=== PATIENT | male | born 1970 | race Caucasian/White ===

== ENCOUNTER 2016-07-27 11:39 | Observation (INO) | payer OTHER ==
[~2016-07-27] VITALS: Ht 160 cm; Wt 63.5 kg
[~2016-07-27 11:39] MED LIST: ACET325S8 PO; GUAI600 PO; LEVA750T PO
[2016-07-27 11:41] VITALS: BP 135/107; PULSE 110; RESP 20; TEMP 98.2; O2SAT 98
[2016-07-27] MEDS ORDERED: PHENYLEPH/NS 1000 MCG/10 ML SYR IV ONE (12:00)
[2016-07-27] MEDS ORDERED: ONDANSETRON HCL 4 MG/2 ML VIAL IV PUSH ONE (12:00)
[2016-07-27] MEDS ORDERED: PROPOFOL 200 MG/20 ML AMP IV ONE (12:00)
--- NOTE | 2016-07-27 12:05 | PD ---
HPI Chief Complaint: Skin Problem Time Seen by Provider: 12:04 Travel History International Travel<30 days: No Contact w/Intl Traveler<30days: No Traveled to known affect area: No History of Present Illness HPI 46-year-old right handed male who is homeless, who is uncertain of any significant medical history, presents to the emergency department for evaluation of a wound on his right fourth digit. Patient states a couple of weeks ago he cut the dorsal aspect of his right fourth digit with metal. He states that he took care of it and it healed pretty well. He states 2 days ago he noticed swelling and wound formation on the volar surface of the right fourth digit adjacent to the initial wound. He states it began draining a purulent drainage. The right fourth digit is edematous and it is starting to move onto his hand. He reports moderate pain at the site. States that he has felt flulike over the last 24 hours. Denies chest tightness. No difficulty breathing. No nausea or vomiting. No other symptoms to report. He is up-to- date on his tetanus vaccination. [facility] Past Medical History Arthritis: Yes Cancer: No Cardiovascular Problems: No Cerebrovascular Accident: No Diminished Hearing: No Endocrine: No Genitourinary: No Immune Disorder: No Musculoskeletal: Yes Neurologic: No Psychiatric: No Reproductive: No Respiratory: No Myocardial Infarction: No Seizures: No Social History Alcohol Use: No Tobacco Use: Yes (1.5ppd) Substance Use: No Allergies-Medications (Allergen,Severity, Reaction): Coded Allergies: No Known Allergies (Unverified , 07/27/16) Reported Meds & Prescriptions Reported Meds & Active Scripts Active No Active Prescriptions or Reported Medications Review of Systems Except as stated in HPI: all other systems reviewed are Neg Physical Exam Narrative GENERAL: Well-nourished male patient, ambulatory and in no acute distress SKIN: Warm and dry. Erythema in his scapula on the dorsal aspect of the right fourth digit proximal to the PIP. There is significant edema of the right fourth digit extending onto the dorsal aspect of the right hand. On the volar surface of the left fourth digit proximal to the PIP there is an open wound draining purulent drainage. HEAD: Atraumatic. Normocephalic. EYES: Pupils equal and round. No scleral icterus. No injection or drainage. ENT: No nasal bleeding or discharge. Mucous membranes pink and moist. NECK: Trachea midline. No JVD. CARDIOVASCULAR: Regular rate and rhythm. No murmur appreciated. RESPIRATORY: No accessory muscle use. Clear to auscultation. Breath sounds equal bilaterally. GASTROINTESTINAL: Abdomen soft, non-tender, nondistended. Hepatic and splenic margins not palpable. MUSCULOSKELETAL: No obvious deformities. No clubbing. No cyanosis. Patient is unable to flex the affected digit secondary to swelling. Sensation intact distal affected digit. Cap refill within normal limits. NEUROLOGICAL: Awake and alert. No obvious cranial nerve deficits. Motor grossly within normal limits. Normal speech. PSYCHIATRIC: Appropriate mood and affect; insight and judgment normal. Data Data Last Documented VS Vital Signs Date Time Temp Pulse Resp B/P Pulse Ox O2 Delivery O2 Flow Rate FiO2 07/27/16 11:41 98.2 110 20 135/107 98 Room Air Orders Iv Access Insert/Monitor (07/27/16 12:10) Complete Blood Count With Diff (07/27/16 12:10) Basic Metabolic Panel (Bmp) (07/27/16 12:10) Finger (Blo1cfz) (07/27/16 ) Wound Culture And Gram Stain (07/27/16 12:35) Vancomycin Inj (Vancomycin Inj) (07/27/16 12:45) Diet Npo (07/27/16 Lunch) Blood Culture (07/27/16 12:55) Labs Laboratory Tests Test 07/27/16 13:00 White Blood Count 14.6 TH/MM3 Red Blood Count 4.86 MIL/MM3 Hemoglobin 14.4 GM/DL Hematocrit 43.1 % Mean Corpuscular Volume 88.7 FL Mean Corpuscular Hemoglobin 29.7 PG Mean Corpuscular Hemoglobin 33.5 % Concent Red Cell Distribution Width 13.5 % Platelet Count 308 TH/MM3 Mean Platelet Volume 8.2 FL Neutrophils (%) (Auto) 77.8 % Lymphocytes (%) (Auto) 15.2 % Monocytes (%) (Auto) 6.4 % Eosinophils (%) (Auto) 0.2 % Basophils (%) (Auto) 0.4 % Neutrophils # (Auto) 11.4 TH/MM3 Lymphocytes # (Auto) 2.2 TH/MM3 Monocytes # (Auto) 0.9 TH/MM3 Eosinophils # (Auto) 0.0 TH/MM3 Basophils # (Auto) 0.1 TH/MM3 CBC Comment DIFF FINAL Differential Comment Sodium Level 137 MEQ/L Potassium Level 4.3 MEQ/L Chloride Level 104 MEQ/L Carbon Dioxide Level 23.8 MEQ/L Anion Gap 9 MEQ/L Blood Urea Nitrogen 7 MG/DL Creatinine 0.83 MG/DL Estimat Glomerular Filtration 100 ML/MIN Rate Random Glucose 88 MG/DL Calcium Level 8.5 MG/DL MDM Medical Decision Making Medical Screen Exam Complete: Yes Emergency Medical Condition: Yes Medical Record Reviewed: Yes Differential Diagnosis Cellulitis versus abscess versus tenosynovitis versus osteomyelitis Narrative Course 46-year-old male presents to the emergency department for evaluation of swelling of the right fourth digit extending onto his hand. Patient is noted to have a wound on the volar surface adjacent to a wound that occurred 2 weeks ago. The finger is edematous and there is swelling on the dorsal aspect of the hand. It is neurovascularly intact. I have taken a picture and sent to Dr. Short, hand specialist. She requests nothing by mouth and admission to medical team. CBC is with mild leukocytosis of 14.6. BMP is without acute concern. Blood cultures are drawn. Patient was given 1 g vancomycin. A call has been placed to hospitalist for admission. Diagnosis Primary Impression: Cellulitis of ring finger Qualified Code: L03.011 - Cellulitis of ring finger, right Additional Impressions: Abscess of ring finger Cellulitis of hand Admitting Information Admitting Physician Requests: Admit Scripts No Active Prescriptions or Reported Meds Condition: Garima Noguera Jul 27, 2016 12:04
[2016-07-27] MEDS ORDERED: VANCOMYCIN INJ 1,000 MG in SODIUM CHLOR 0.9% 250 ML INJ 250 ML IV ONE (12:45)
--- NOTE | 2016-07-27 13:02 | RADRPT ---
EXAM DATE/TIME: 07/27/2016 12:32 [place] COMPARISON: No previous studies available for comparison. INDICATIONS : Patient states he has an infection which started last night. MEDICAL HISTORY : None. SURGICAL HISTORY : None. ENCOUNTER: Initial ACUITY: 1 day PAIN SCORE: 10/10 LOCATION: Right Fourth digit. FINDINGS: Soft tissues of the ring finger are diffusely swollen. Bones are intact and normally aligned. No sign ificant arthropathy seen. No radiopaque foreign body demonstrated. CONCLUSION: Soft tissue swelling without bony abnormality. Renny Helm MD on July 27, 2016 at 13:00 Board Certified Radiologist. This report was verified electronically.
[2016-07-27 13:10] LABS: AUTOMATED NEUTROPHIL # 11.4 TH/MM3 (1.8-7.7); BASOPHIL # 0.1 TH/MM3 (0-0.2); BASOPHIL % 0.4 % (0.0-2.0); EOSINOPHIL % 0.2 % (0.0-4.0); HEMATOCRIT 43.1 % (39.0-51.0); HEMO FLAGS DIFF FINAL; LYMPH % 15.2 % (9.0-44.0); LYMPHOCYTE # 2.2 TH/MM3 (1.0-4.8); MEAN CELL VOLUME 88.7 FL (80.0-100.0); MEAN CORPUSCULAR HEMOGLOBIN 29.7 PG (27.0-34.0); MEAN CORPUSCULAR HGB CONC 33.5 % (32.0-36.0); MONO % 6.4 % (0.0-8.0); NEUT % 77.8 % (16.0-70.0); PLATELET COUNT 308 TH/MM3 (150-450); RED BLOOD COUNT 4.86 MIL/MM3 (4.50-5.90); RED CELL DISTRIBUTION WIDTH 13.5 % (11.6-17.2); WHITE BLOOD COUNT 14.6 TH/MM3 (4.0-11.0)
[2016-07-27 13:25] LABS: BICARBONATE 23.8 MEQ/L (21.0-32.0)
[2016-07-27 13:26] LABS: POTASSIUM 4.3 MEQ/L (3.5-5.1)
[2016-07-27 14:15] VITALS: BP 128/87
[2016-07-27] MEDS ORDERED: ONDANSETRON HCL 4 MG/2 ML VIAL IVP PRN (14:15)
[2016-07-27] MEDS ORDERED: BISACODYL 10 MG SUPP PR PRN (14:15)
[2016-07-27] MEDS ORDERED: NALOXONE HCL 0.4 MG/ML AMP IV PRN (14:15)
[2016-07-27] MEDS ORDERED: MAGNESIUM HYDROXIDE SUSP 30 ML CUP PO PRN (14:15)
[2016-07-27] MEDS ORDERED: ACETAMINOPHEN/HYDROcodone 325 MG/5 MG TAB PO PRN (14:15)
[2016-07-27] MEDS ORDERED: SODIUM CHLORIDE 0.9% FLUSH 5 ML FLUSH FLUSH PRN (14:15)
[2016-07-27] MEDS ORDERED: ACETAMINOPHEN 325 MG TAB PO PRN (14:15)
[2016-07-27] MEDS ORDERED: SENNOSIDES 8.6 MG TAB PO PRN (14:15)
[2016-07-27] MEDS ORDERED: MORPHINE SULFATE 4 MG/ML INJ IV PUSH PRN ×3 (14:15)
[2016-07-27] MEDS ORDERED: METOPROLOL TARTRATE 25 MG TAB PO PRN ×2 (15:15)
[2016-07-27] MEDS ORDERED: SODIUM CHLORID 0.9% 500 ML IV SCH ×2 (15:15)
[2016-07-27] MEDS ORDERED: INSULIN HUMAN REGULAR 1,000 UNITS/10 ML VIAL SQ PRN ×2 (15:15)
[2016-07-27] MEDS ORDERED: LACTATED RINGER'S 1000 ML IV SCH ×2 (15:15)
[2016-07-27] MEDS ORDERED: Vancomycin Consult Pharmacy 1 EA OTHER SCH (15:45)
[2016-07-27] MEDS ORDERED: ceFAZolin 1,000 MG/NS 100 ML IV SCH ×2 (16:15)
--- NOTE | 2016-07-27 16:24 | HHI.HP ---
[facility]ician No Primary Care Physician Admission Diagnosis R 4TH DIGIT CELLULITIS/ABSCESS WITH HAND CELLULITIS Diagnoses: Chief Complaint: Right hand infection Travel History International Travel<30 Days: No Contact w/Intl Traveler <30 Da: No Traveled to Known Affected Are: No History of Present Illness 46 years old homeless man presented to the ED with complaint of right fourth digit swelling, redness and severe tenderness which extended to his right arm happened a few days ago after he had a metal piece of raised his finger, he applied antibiotic cream and dressing but it didn't get better and become purulent and draining, patient admitted having flulike syndrome last 24 hours, however no significant fever or chills or short of breath or nausea or vomiting , no abdominal pain diarrhea or constipation, he is up-to-date on his tetanus vaccination. He doesn't follow up with any physician he is not aware of having any medical problem Review of Systems All 10 systems reviewed and was positive for what is mentioned in history of present illness otherwise negative Past Family Social History Past Medical History Not aware of any medical problem Allergies: Coded Allergies: No Known Allergies (Unverified , 07/27/16) Family History Mother had cancer and diabetes, father had heart attack Social History Smoke one half pack per day, drinks alcohol occasionally denied also drug abuse Physical Exam Vital Signs Vital Signs Date Time Temp Pulse Resp B/P Pulse Ox O2 Delivery O2 Flow Rate FiO2 07/27/16 14:15 85 16 128/87 99 07/27/16 11:41 98.2 110 20 135/107 98 Room Air Physical Exam GENERAL: This is a well-nourished, well-developed patient, in no apparent distress. SKIN: Right dorsal hand erythema and swelling, fourth right digits with global swelling with abrasion which is wet and draining HEAD: Atraumatic. Normocephalic. EYES: Pupils equal round and reactive. Extraocular motions intact. No scleral icterus. ENT: Nose without bleeding, or drainage, Airway patent. NECK: Trachea midline. Supple CARDIOVASCULAR: Regular rate and rhythm without murmurs, gallops, or rubs. RESPIRATORY: Fair air entry bilaterally. No wheezes, rales, or rhonchi. GASTROINTESTINAL: Abdomen soft, non-tender, nondistended. Positive bowel sounds MUSCULOSKELETAL: Extremities without clubbing, cyanosis, or edema. Pedal pulses appreciated NEUROLOGICAL: Awake and alert. Moves all extremity. Normal speech.no focal neurological deficit Laboratory Laboratory Tests Test 07/27/16 13:00 White Blood Count 14.6 Red Blood Count 4.86 Hemoglobin 14.4 Hematocrit 43.1 Mean Corpuscular Volume 88.7 Mean Corpuscular Hemoglobin 29.7 Mean Corpuscular Hemoglobin 33.5 Concent Red Cell Distribution Width 13.5 Platelet Count 308 Mean Platelet Volume 8.2 Neutrophils (%) (Auto) 77.8 Lymphocytes (%) (Auto) 15.2 Monocytes (%) (Auto) 6.4 Eosinophils (%) (Auto) 0.2 Basophils (%) (Auto) 0.4 Neutrophils # (Auto) 11.4 Lymphocytes # (Auto) 2.2 Monocytes # (Auto) 0.9 Eosinophils # (Auto) 0.0 Basophils # (Auto) 0.1 CBC Comment DIFF FINAL Differential Comment Sodium Level 137 Potassium Level 4.3 Chloride Level 104 Carbon Dioxide Level 23.8 Anion Gap 9 Blood Urea Nitrogen 7 Creatinine 0.83 Estimat Glomerular Filtration 100 Rate Random Glucose 88 Calcium Level 8.5 Date/Time Procedure Status Source Growth 07/27/16 13:01 Gram Stain Received Wound Finger Pending 07/27/16 13:01 Wound Culture Received Wound Finger Pending 07/27/16 13:00 Aerobic Blood Culture Received Blood Peripheral Pending 07/27/16 13:00 Anaerobic Blood Culture Received Blood Peripheral Pending Result Diagram: 07/27/16 1300 07/27/16 1300 Imaging Last Impressions Finger X-Ray 07/27/16 0000 Signed Impressions: Service Date/Time: Wednesday, July 27, 2016 12:32 - CONCLUSION: Soft tissue swelling without bony abnormality. Renny Helm MD Assessment and Plan Assessment and Plan 46 years old male with Right fourth digit and right hand cellulitis/abscess Leukocytosis with left shift Plan: Admit for incision and drainage Iv vancomycin started Consult for hand surgery obtain recommended keeping patient nothing by mouth, he will go to our day Follow culture postop Pain medication with [place] and morphine ED prophylaxis with ambulation Discussed Condition With Patient Chaka David MD Jul 27, 2016 16:23
[2016-07-27] MEDS ORDERED: LIDOCAINE HCL 2% 50 ML VIAL ONE (18:22)
[2016-07-27] MEDS ORDERED: ceFAZolin INJ 1,000 MG VIAL ONE (18:22)
[2016-07-27] MEDS ORDERED: NEOMYCIN/POLYMYXIN 1 ML G.U. IRRIGANT XX ONE (18:38)
[2016-07-27] MEDS ORDERED: ACETAMINOPHEN 1000 MG/100 ML VIAL IV ONE (18:50)
[2016-07-27] MEDS ORDERED: DO NOT ADM ANY ANTICOAGULANT DRUGS XX PRN (19:22)
[2016-07-27] MEDS ORDERED: fentaNYL CITRATE 250 MCG/5 ML AMP ONE (19:25)
[2016-07-27] MEDS ORDERED: MIDAZOLAM HCL 2 MG/2 ML VIAL ONE (19:25)
[2016-07-27] MEDS: SODIUM CHLOR 0.9% 1000 ML INJ 1,000 ML IV SCH (19:38)
[2016-07-27] MEDS ORDERED: *morphine SULFATE 8 MG/ML PERIprocedure ONLY ONE (20:13)
--- NOTE | 2016-07-27 20:36 | PD.ORT.PN ---
Subjective Subjective Remarks Patient reports pain improved Objective Vitals Vital Signs Date Time Temp Pulse Resp B/P Pulse Ox O2 Delivery O2 Flow Rate FiO2 07/27/16 19:30 112 16 99/66 95 Nasal Cannula 3 07/27/16 19:20 100.6 110 23 99/52 94 Nasal Cannula 3 07/27/16 14:15 85 16 128/87 99 07/27/16 11:41 98.2 110 20 135/107 98 Room Air I/O 07/26/16 07/26/16 07/26/16 07/27/16 07/27/16 07/27/16 07:00 15:00 23:00 07:00 15:00 23:00 Intake Total 600 ml Output Total 10 ml Balance 590 ml Intake Other 600 ml Output Estimated Blood Loss 10 ml Result Diagram: 07/27/16 1300 07/27/16 1300 Other Results Laboratory Tests Test 07/27/16 16:05 Prothrombin Time 11.0 SEC (9.8-11.6) Prothromb Time International 1.0 RATIO Ratio Imaging Last 24 hours Impressions Finger X-Ray 07/27/16 0000 Signed Impressions: Service Date/Time: Wednesday, July 27, 2016 12:32 - CONCLUSION: Soft tissue swelling without bony abnormality. Renny Helm MD Objective Remarks Dressing in place, <2 sec capillary refill to finger, decreased sensation secondary to digital block, able to fire fdp, fds Assessment & Plan Assessment and Plan POD0 s/p I&D flexor tendon sheath right ring finger -IV Ab per primary team, follow cultures -Daily dressing change with packing change to begin POD2 -Followup with wound clinic for dressing changes on discard if needed -Elevate right ring finger and ROM right ring finger Patricia Short MD Jul 27, 2016 20:36
--- NOTE | 2016-07-27 20:51 | MB ---
cc: PATRICIA SHORT DATE OF CONSULTATION: 07/27/2016 REASON FOR CONSULTATION: Infectious Flexor tenosynovitis right ring finger. HISTORY OF PRESENT ILLNESS Alex Dejesus is a 46-year-old right-hand dominant male who states that he sustained a laceration over the dorsum of his right ring finger several days ago. He states that he had attempted to keep it clean, then he noticed purulent drainage from the volar aspect of the finger last night and this morning, so he presented to the emergency room. He reports a prior similar episode on the left hand but nothing recently on the right hand. PAST MEDICAL HISTORY: Denies ALLERGIES NO KNOWN DRUG ALLERGIES. SOCIAL HISTORY The patient smokes one pack per day. Drinks alcohol occasionally. Denies any drug use. PHYSICAL EXAMINATION The patient is alert and oriented. Exam of the right ring finger shows significant purulence on the volar aspect of the finger, significant swelling of the right ring finger, inability to make a full fist with the right ring finger. Sensation intact on the radial ulnar side. Less than 2-second capillary refill. Function intact of FDS and FDP. No obvious swelling or erythema to the hand. LABORATORY DATA: White count 14.6. IMAGING STUDIES X-ray shows no evidence of osteomyelitis or fracture. ASSESSMENT/PLAN A 46-year-old right-hand dominant male with flexor tenosynovitis of the right ring finger. At this time I recommended emergent incision and drainage and admission for IV antibiotics and the patient elects to proceed. Risks were explained but not limited to wound complications, infection, sepsis, recurrent abscess, need for additional surgeries. He elected to proceed. Patricia Short MD /ATIYA /8:31 PM /8:48 PM [facility] SYSTEM[facility]
[2016-07-27] MEDS: SODIUM CHLORIDE 0.9% FLUSH 5 ML FLUSH FLUSH SCH (21:00)
[2016-07-27 21:30] VITALS: BP 107/75; PULSE 100; RESP 16; TEMP 96.8; O2SAT 94
[2016-07-28] VITALS (8 sets, daily range): BP systolic 101–117; BP diastolic 63–81; PULSE 68–114; RESP 16–20; TEMP 96.3–100.5; O2SAT 94–97
[2016-07-28] MEDS: SODIUM CHLOR 0.9% 1000 ML INJ 1,000 ML IV SCH ×3 (00:02→20:02)
[2016-07-28] MEDS ORDERED: VANCOMYCIN INJ 1,000 MG in SODIUM CHLOR 0.9% 250 ML INJ 250 ML IV SCH (01:00)
[2016-07-28] MEDS: DOCUSATE SODIUM 100 MG CAP PO SCH ×2 (01:27→10:31)
[2016-07-28] MEDS: ACETAMINOPHEN/HYDROcodone 325 MG/7.5 MG TAB PO PRN ×2 (01:28→07:45)
[2016-07-28] MEDS: VANCOMYCIN INJ 1,250 MG in SODIUM CHLOR 0.9% 250 ML INJ 250 ML IV SCH ×3 (01:28→23:35)
[2016-07-28] MEDS: SODIUM CHLORIDE 0.9% FLUSH 5 ML FLUSH FLUSH SCH ×2 (07:00→20:12)
[2016-07-28] MEDS: HEPARIN SODIUM - SQ 10,000 UNITS/ML VIAL SQ SCH ×2 (07:45→16:48)
[2016-07-28 07:53] LABS: AUTOMATED NEUTROPHIL # 12.1 TH/MM3 (1.8-7.7); BASOPHIL % 0.3 % (0.0-2.0); EOSINOPHIL # 0.1 TH/MM3 (0-0.4); EOSINOPHIL % 0.5 % (0.0-4.0); HEMATOCRIT 36.3 % (39.0-51.0); HEMO FLAGS DIFF FINAL; LYMPH % 9.5 % (9.0-44.0); LYMPHOCYTE # 1.4 TH/MM3 (1.0-4.8); MEAN CELL VOLUME 88.5 FL (80.0-100.0); MEAN CORPUSCULAR HEMOGLOBIN 29.1 PG (27.0-34.0); MEAN CORPUSCULAR HGB CONC 32.9 % (32.0-36.0); MONO % 7.9 % (0.0-8.0); NEUT % 81.8 % (16.0-70.0); PLATELET COUNT 250 TH/MM3 (150-450); RED CELL DISTRIBUTION WIDTH 13.4 % (11.6-17.2); WHITE BLOOD COUNT 14.8 TH/MM3 (4.0-11.0)
[2016-07-28 08:39] LABS: BICARBONATE 23.6 MEQ/L (21.0-32.0); POTASSIUM 3.3 MEQ/L (3.5-5.1)
[2016-07-28] MEDS ORDERED: INFLUENZA VIRUS VACCINE (QUADRIVALENT) 0.5 ML SYR IM ONE (09:00)
[2016-07-28] MEDS ORDERED: POTASSIUM CHLORIDE 20 MEQ CONTROLLED RELEASE TAB PO ONE (09:45)
--- NOTE | 2016-07-28 14:06 | HHI.PR ---
Subjective Remarks Patient doing well laying in bed, afebrile, status post I&D for his right fourth digit and hand Objective Vitals Vital Signs Date Time Temp Pulse Resp B/P Pulse Ox O2 Delivery O2 Flow Rate FiO2 07/28/16 11:50 97.1 68 20 105/77 97 07/28/16 10:19 96 21 07/28/16 07:50 100.3 93 20 103/63 94 07/28/16 04:06 100.4 99 16 108/77 96 07/28/16 03:11 16 07/28/16 01:02 100.5 114 16 113/81 94 07/27/16 21:30 96.8 100 16 107/75 94 07/27/16 20:50 98.5 98 16 100/64 95 Room Air 07/27/16 20:30 98.7 101 16 101/62 96 Room Air 07/27/16 20:18 15 07/27/16 20:15 104 16 102/64 95 Room Air 07/27/16 20:00 105 16 100/62 94 Room Air 07/27/16 19:45 110 16 91/62 98 Nasal Cannula 3 07/27/16 19:30 112 16 99/66 95 Nasal Cannula 3 07/27/16 19:20 100.6 110 23 99/52 94 Nasal Cannula 3 07/27/16 14:15 85 16 128/87 99 I/O 07/27/16 07/27/16 07/27/16 07/28/16 07/28/16 07/28/16 07:00 15:00 23:00 07:00 15:00 23:00 Intake Total 1390 ml 650 ml Output Total 260 ml 900 ml Balance 1130 ml -250 ml Intake Oral 690 ml 650 ml IV Total 100 ml Other 600 ml Output Urine Total 250 ml 900 ml Estimated Blood Loss 10 ml # Voids 0 # Bowel Movements 0 0 Result Diagram: 07/28/1670207/28/16702 Objective Remarks GENERAL: This is a well-nourished, well-developed patient, in no apparent distress. SKIN: No rashes, warm and dry HEAD: Atraumatic. Normocephalic. EYES: Pupils equal round and reactive. Extraocular motions intact. No scleral icterus. ENT: Nose without bleeding, or drainage, Airway patent. NECK: Trachea midline. Supple CARDIOVASCULAR: Regular rate and rhythm without murmurs, gallops, or rubs. RESPIRATORY: Fair air entry bilaterally. No wheezes, rales, or rhonchi. GASTROINTESTINAL: Abdomen soft, non-tender, nondistended. Positive bowel sounds MUSCULOSKELETAL: Extremities without clubbing, cyanosis, or edema. Pedal pulses appreciated, right hand in dressing NEUROLOGICAL: Awake and alert. Moves all extremity. Normal speech.no focal neurological deficit A/P Assessment and Plan 46 years old male with Right fourth digit and right hand cellulitis/abscess Leukocytosis with left shift Acute anemia hemoglobin dropped from 14-12 mostly postop Plan: Status post incision and drainage 07/27/16 Iv vancomycin Follow wound culture Pain medication with [place] and morphine ED prophylaxis with ambulation Chaka David MD Jul 28, 2016 14:05
[2016-07-29] VITALS (7 sets, daily range): BP systolic 116–134; BP diastolic 76–85; PULSE 73–91; RESP 16–20; TEMP 95.7–98.7; O2SAT 95–99
[2016-07-29] MEDS: DOCUSATE SODIUM 100 MG CAP PO SCH ×2 (01:45→12:20)
[2016-07-29] MEDS: HEPARIN SODIUM - SQ 10,000 UNITS/ML VIAL SQ SCH ×3 (01:45→17:15)
[2016-07-29] MEDS: SODIUM CHLOR 0.9% 1000 ML INJ 1,000 ML IV SCH ×2 (06:02→12:21)
[2016-07-29] MEDS: SODIUM CHLORIDE 0.9% FLUSH 5 ML FLUSH FLUSH SCH ×2 (08:39→21:00)
--- NOTE | 2016-07-29 10:06 | HHI.PR ---
Subjective Remarks Doing well, stated pain is less, afebrile, wound culture showed MRSA and group A strep Objective Vitals Vital Signs Date Time Temp Pulse Resp B/P Pulse Ox O2 Delivery O2 Flow Rate FiO2 07/29/16 08:00 95.7 81 20 125/84 97 07/29/16 04:00 98.2 91 16 127/85 95 07/29/16 00:28 97.7 86 16 116/81 95 07/28/16 20:00 97.4 91 16 117/79 96 07/28/16 19:50 18 07/28/16 17:44 96 21 07/28/16 15:50 96.3 89 20 101/72 96 07/28/16 11:50 97.1 68 20 105/77 97 07/28/16 10:19 96 21 I/O 07/28/16 07/28/16 07/28/16 07/29/16 07/29/16 07/29/16 07:00 15:00 23:00 07:00 15:00 23:00 Intake Total 650 ml 600 ml 1895 ml 1345 ml Output Total 900 ml 2000 ml 1100 ml 2500 ml 1000 ml Balance -250 ml -1400 ml 795 ml -1155 ml -1000 ml Intake Oral 650 ml 600 ml 600 ml 600 ml IV Total 1295 ml 745 ml Output Urine Total 900 ml 2000 ml 1100 ml 2500 ml 1000 ml # Bowel Movements 0 0 0 0 Result Diagram: 07/28/16 0707/28/16 07 Objective Remarks GENERAL: This is a well-nourished, well-developed patient, in no apparent distress. SKIN: No rashes, warm and dry HEAD: Atraumatic. Normocephalic. EYES: Pupils equal round and reactive. Extraocular motions intact. No scleral icterus. ENT: Nose without bleeding, or drainage, Airway patent. NECK: Trachea midline. Supple CARDIOVASCULAR: Regular rate and rhythm without murmurs, gallops, or rubs. RESPIRATORY: Fair air entry bilaterally. No wheezes, rales, or rhonchi. GASTROINTESTINAL: Abdomen soft, non-tender, nondistended. Positive bowel sounds MUSCULOSKELETAL: Extremities without clubbing, cyanosis, or edema. Pedal pulses appreciated, right hand in dressing NEUROLOGICAL: Awake and alert. Moves all extremity. Normal speech.no focal neurological deficit A/P Assessment and Plan 46 years old male with Right fourth digit and right hand cellulitis/abscess Leukocytosis with left shift Acute anemia hemoglobin dropped from 14-12 mostly postop Hypokalemia replaced, monitor level Plan: Status post incision and drainage 07/27/16 Iv vancomycin Wound culture showed MRSA and group A beta strep>> continue Vanco will switch to by mouth clindamycin if okay with surgery, fungal and AFB cultures still pending Check CBC BMP in a.m. Pain medication with [place] and morphine ED prophylaxis with ambulation Discharge Planning today or In a.m. on clindamycin okay with surgery Discharge patient to home Condition on discharge: Improved Regular Diet as tolerated Ad [place] activity Rx written:clindamycin , percocet , lactinex Follow-up with primary care physician, hand surgeon as dirceted Addendum: I was called by the nurse, and surgeon requesting ID consult prior to discharge Chaka David MD Jul 29, 2016 10:06
[2016-07-29] MEDS ORDERED: HYDR-3516 PO (10:23)
[2016-07-29] MEDS ORDERED: LACTCHW3 CHEW (10:23)
[2016-07-29] MEDS ORDERED: CLIN1CAP6 PO (10:23)
--- NOTE | 2016-07-29 10:30 | HHI.DS ---
Discharge Summary Admission Date Jul 27, 2016 at 14:02 Discharge Date: Jul 31, 2016 Admitting Diagnosis R 4TH DIGIT CELLULITIS/ABSCESS WITH HAND CELLULITIS (1) Abscess of ring finger ICD Code: L02.519 (2) Cellulitis of ring finger ICD Code: L03.019 Procedures see below Brief History - From Admission 46 years old homeless man presented to the ED with complaint of right fourth digit swelling, redness and severe tenderness which extended to his right arm happened a few days ago after he had a metal piece of raised his finger, he applied antibiotic cream and dressing but it didn't get better and become purulent and draining, patient admitted having flulike syndrome last 24 hours, however no significant fever or chills or short of breath or nausea or vomiting , no abdominal pain diarrhea or constipation, he is up-to-date on his tetanus vaccination. He doesn't follow up with any physician he is not aware of having any medical problem CBC/BMP: 07/28/16 0703 07/28/16 0703 Significant Findings Laboratory Tests Test 07/27/16 07/28/16 13:00 07:03 White Blood Count 14.6 TH/MM3 14.8 TH/MM3 (4.0-11.0) (4.0-11.0) Neutrophils (%) (Auto) 77.8 % 81.8 % (16.0-70.0) (16.0-70.0) Neutrophils # (Auto) 11.4 TH/MM3 12.1 TH/MM3 (1.8-7.7) (1.8-7.7) Red Blood Count 4.10 MIL/MM3 (4.50-5.90) Hemoglobin 12.0 GM/DL (13.0-17.0) Hematocrit 36.3 % (39.0-51.0) Monocytes # (Auto) 1.2 TH/MM3 (0-0.9) Potassium Level 3.3 MEQ/L (3.5-5.1) Calcium Level 7.9 MG/DL (8.5-10.1) PE at Discharge GENERAL: This is a well-nourished, well-developed patient, in no apparent distress. SKIN: No rashes, warm and dry HEAD: Atraumatic. Normocephalic. EYES: Pupils equal round and reactive. Extraocular motions intact. No scleral icterus. ENT: Nose without bleeding, or drainage, Airway patent. NECK: Trachea midline. Supple CARDIOVASCULAR: Regular rate and rhythm without murmurs, gallops, or rubs. RESPIRATORY: Fair air entry bilaterally. No wheezes, rales, or rhonchi. GASTROINTESTINAL: Abdomen soft, non-tender, nondistended. Positive bowel sounds MUSCULOSKELETAL: Extremities without clubbing, cyanosis, or edema. Pedal pulses appreciated, right hand in dressing NEUROLOGICAL: Awake and alert. Moves all extremity. Normal speech.no focal neurological deficit Hospital Course Right fourth digit and right hand cellulitis/abscess hand sx consulted Status post incision and drainage 07/27/16,Iv vancomycin, Pain medication with [place] and morphine Wound culture showed MRSA and group A beta strep>> continue Vanco, surgery requested ID consultation which was obtained, Dr. Reyes requested continuing iv antibiotic and to be discharged on clindamycin and Keflex for 10 days, patient is high risk for oral antibiotic adherence since he is a homeless, lengthy education and discussion with the patient has been done to address the importance of being religiously adherent with his antibiotic to make sure healing of the wound Leukocytosis with left shift, monitored cbc , Acute anemia hemoglobin dropped from 14-12 mostly postop Pt Condition on Discharge: Fair Discharge Disposition: Discharge Home Discharge Time: > 30 minutes Discharge Instructions DIET: Follow Instructions for: As Tolerated, No Restrictions Activities you can perform: Weight Bearing as Joseph Other Activity Instructions: -Elevate right ring finger and ROM right ring finger Follow up Referrals: Hand Surgery - 1 Week with Patricia Short MD New Medications: Cephalexin (Keflex) 500 Mg Cap 500 MG PO Q6H Infection #40 Ref 0 CAP Clindamycin (Clindamycin) 300 Mg Cap 300 MG PO TID Infection #30 Ref 0 CAP Lactobacillus Acidophilus (Lactinex) 1 Chew 1 TAB CHEW TID Nutritional Supplement #90 Ref 0 TAB Hydrocodone-Acetaminophen (Hydrocodone-Acetaminophen) 5-325 mg Tab 1 TAB PO Q4H PRN PAIN SCALE 3 TO 5 #15 TAB Chaka David MD Jul 29, 2016 10:30
[2016-07-29] MEDS ORDERED: PHARMACY ORDERED LAB XX ONE (11:45)
[2016-07-29] MEDS: VANCOMYCIN INJ 1,250 MG in SODIUM CHLOR 0.9% 250 ML INJ 250 ML IV SCH (14:03)
[2016-07-30] VITALS: BP 107/73; PULSE 79; RESP 16; TEMP 98.1; O2SAT 97
[2016-07-30] MEDS: VANCOMYCIN INJ 1,250 MG in SODIUM CHLOR 0.9% 250 ML INJ 250 ML IV SCH ×2 (00:39→12:58)
[2016-07-30] MEDS: HEPARIN SODIUM - SQ 10,000 UNITS/ML VIAL SQ SCH ×3 (00:39→18:11)
[2016-07-30] MEDS: SODIUM CHLOR 0.9% 1000 ML INJ 1,000 ML IV SCH ×3 (02:02→22:02)
[2016-07-30] MEDS: DOCUSATE SODIUM 100 MG CAP PO SCH ×2 (02:15→14:15)
[2016-07-30 04:00] VITALS: BP 114/73; PULSE 80; RESP 16; TEMP 98.2; O2SAT 98
[2016-07-30 05:46] LABS: AUTOMATED NEUTROPHIL # 5.5 TH/MM3 (1.8-7.7); BASOPHIL # 0.1 TH/MM3 (0-0.2); BASOPHIL % 0.7 % (0.0-2.0); EOSINOPHIL # 0.3 TH/MM3 (0-0.4); EOSINOPHIL % 3.5 % (0.0-4.0); HEMATOCRIT 38.9 % (39.0-51.0); HEMO FLAGS DIFF FINAL; LYMPH % 27.8 % (9.0-44.0); LYMPHOCYTE # 2.6 TH/MM3 (1.0-4.8); MEAN CELL VOLUME 88.2 FL (80.0-100.0); MEAN CORPUSCULAR HEMOGLOBIN 29.5 PG (27.0-34.0); MEAN CORPUSCULAR HGB CONC 33.5 % (32.0-36.0); MONO % 7.8 % (0.0-8.0); NEUT % 60.2 % (16.0-70.0); PLATELET COUNT 273 TH/MM3 (150-450); RED BLOOD COUNT 4.41 MIL/MM3 (4.50-5.90); RED CELL DISTRIBUTION WIDTH 13.1 % (11.6-17.2); WHITE BLOOD COUNT 9.2 TH/MM3 (4.0-11.0)
[2016-07-30 06:08] LABS: BICARBONATE 22.6 MEQ/L (21.0-32.0); POTASSIUM 3.6 MEQ/L (3.5-5.1)
[2016-07-30 08:45] VITALS: BP 102/56; PULSE 82; RESP 16; TEMP 96.2; O2SAT 99
[2016-07-30] MEDS: SODIUM CHLORIDE 0.9% FLUSH 5 ML FLUSH FLUSH SCH ×2 (08:57→20:00)
--- NOTE | 2016-07-30 10:48 | PD.ID.CON ---
History of Present Illness Service ID Consult Requested By Dr David Reason for Consult R Ring finger infx Primary Care Physician No Primary Care Physician Diagnoses: History of Present Illness 46 yo male with unremarkable PMX developped swelling redness purulent drainage and pain of his R ring finger a week later after sustaining a cut He was managing it by himself with topical abx ointment and finally presented to ER after his problem got worse He underwent I+D and he states improvednt. Before surgery the whole hand was red and swollen No fever, no leukocytosis He feels fine o/w and wants to go home His culture positive for GAS and MRSA He is on vancomycin Review of Systems Except as stated in HPI: all other systems reviewed are Neg Past Family Social History Allergies: Coded Allergies: *MDRO Multi-Drug Resistant Organism (Verified Adverse Reaction, Unknown, ) MRSA (finger)-07/27/16 Past Medical History denies Past Surgical History I+D R ring finger Active Ordered Medications Medications where reviewed in EMR Antibiotics Include: vancomcyin Family History Mother had cancer and diabetes, father had heart attack Social History homeless Smoke 1.5 pack per day, drinks alcohol occasionally denied also drug abuse Physical Exam Vital Signs Vital Signs Date Time Temp Pulse Resp B/P Pulse Ox O2 Delivery O2 Flow Rate FiO2 07/30/16 08:45 96.2 82 16 102/56 99 07/30/16 04:00 98.2 80 16 114/73 98 07/30/16 00:00 98.1 79 16 107/73 97 07/29/16 20:00 98.7 86 18 125/81 98 07/29/16 16:05 96.7 80 20 124/76 99 07/29/16 12:00 96.2 73 20 134/84 98 07/29/16 10:40 97 21 Physical Exam CONSTITUTIONAL/GENERAL: This is an adequately nourished patient, in no apparent distress. TUBES/LINES/DRAINS: SKIN: No jaundice, rashes, or lesions. Skin temperature appropriate. Not diaphoretic. HEAD: Atraumatic. Normocephalic. EYES: Pupils equal and round and reactive. Extraocular motions intact. No scleral icterus. No injection or drainage. Fundi not examined. ENT: Hearing grossly normal. Nose without bleeding or purulent drainage. Oral mucosae moist, dentition poor NECK: Trachea midline. Supple, nontender. No palpable thyroid enlargement or nodularity. CARDIOVASCULAR: Regular rate and rhythm without murmurs, gallops, or rubs. No JVD. Peripheral pulses symmetric. RESPIRATORY/CHEST: Symmetric, unlabored respirations. Clear to auscultation. Breath sounds equal bilaterally. No wheezes, rales, or rhonchi. GASTROINTESTINAL: Abdomen soft, non-tender, nondistended. No hepato-splenomegaly , or palpable masses. No guarding. Bowel sounds present. MUSCULOSKELETAL: Extremities without clubbing, cyanosis, or edema. No joint tenderness or effusion noted. R ring finger incision on lat and volar aspect of [address] st phalanx is packed with wound wo granulations so far, necrotic tissu present, purulent odorless d/c; volacious discoloration present LYMPHATICS: No palpable cervical or supraclavicular adenopathy. NO axillae lymphadenopathy NEUROLOGICAL: Awake and alert. Motor and sensory grossly within normal limits. Follows commands. Cognitively sharp. Moves all extremities. PSYCHIATRIC: No obvious anxiety/depression. no apparent hallucinations or other psychotic thought process. Laboratory Laboratory Tests Test 07/29/16 07/30/16 12:30 05:15 Vancomycin Level Trough 6.6 White Blood Count 9.2 Red Blood Count 4.41 Hemoglobin 13.0 Hematocrit 38.9 Mean Corpuscular Volume 88.2 Mean Corpuscular Hemoglobin 29.5 Mean Corpuscular Hemoglobin 33.5 Concent Red Cell Distribution Width 13.1 Platelet Count 273 Mean Platelet Volume 8.0 Neutrophils (%) (Auto) 60.2 Lymphocytes (%) (Auto) 27.8 Monocytes (%) (Auto) 7.8 Eosinophils (%) (Auto) 3.5 Basophils (%) (Auto) 0.7 Neutrophils # (Auto) 5.5 Lymphocytes # (Auto) 2.6 Monocytes # (Auto) 0.7 Eosinophils # (Auto) 0.3 Basophils # (Auto) 0.1 CBC Comment DIFF FINAL Differential Comment Sodium Level 139 Potassium Level 3.6 Chloride Level 107 Carbon Dioxide Level 22.6 Anion Gap 9 Blood Urea Nitrogen 7 Creatinine 0.81 Estimat Glomerular Filtration 103 Rate Random Glucose 99 Calcium Level 8.7 Date/Time Procedure Status Source Growth 07/27/16 19:00 Gram Stain - Final Complete Fluid Other 07/27/16 19:00 Body Fluid Culture - Final Complete S. Aureus Mrsa Group A Beta Strep 07/27/16 19:00 Fungal Smear - Final Resulted Fluid Other NO FUNGAL ELEMENTS SEEN. 07/27/16 19:00 Fungal Culture Resulted Fluid Other Pending 07/27/16 19:00 Acid Fast Stain - Final Resulted Fluid Other NO ACID FAST BACILLI SEEN 07/27/16 19:00 Mycobacterial Culture Resulted Fluid Other Pending 07/27/16 13:00 Aerobic Blood Culture - Preliminary Resulted Blood Peripheral NO GROWTH IN 2 DAYS 07/27/16 13:00 Anaerobic Blood Culture - Preliminary Resulted Blood Peripheral NO GROWTH IN 2 DAYS Result Diagram: 07/30/16 0515 07/30/16 0515 Imaging Last Impressions Finger X-Ray 07/27/16 0000 Signed Impressions: Service Date/Time: Wednesday, July 27, 2016 12:32 - CONCLUSION: Soft tissue swelling without bony abnormality. Renny Helm MD Assessment and Plan Assessment and Plan skin and soft tissue infection of R ring finger, GAS and MRSA -sp I+D Rec's: - would cont at least 1 more day of abx and dc when improves - cont vncomycin; keep trough 15-20 - add cefazoin - monitor clinically - dc abx should include both GAS and MRSA coverage: -Keflex 500 qid + clindamycin 300 QID for 10 more days Qiana Reyes MD Jul 30, 2016 10:48
[2016-07-30] MEDS ORDERED: CEPH-460 PO (10:58)
--- NOTE | 2016-07-30 11:05 | HHI.PR ---
Subjective Remarks Follow up on right ring finger abscess and cellulitis, status post IND and ID consultation is on vancomycin and cefazolin, ID recommended discharged tomorrow on Keflex and clindamycin Patient taken a shower, doing well , pain is controlled, afebrile Objective Vitals Vital Signs Date Time Temp Pulse Resp B/P Pulse Ox O2 Delivery O2 Flow Rate FiO2 07/30/16 08:45 96.2 82 16 102/56 99 07/30/16 04:00 98.2 80 16 114/73 98 07/30/16 00:00 98.1 79 16 107/73 97 07/29/16 20:00 98.7 86 18 125/81 98 07/29/16 16:05 96.7 80 20 124/76 99 07/29/16 12:00 96.2 73 20 134/84 98 I/O 07/29/16 07/29/16 07/29/16 07/30/16 07/30/16 07/30/16 07:00 15:00 23:00 07:00 15:00 23:00 Intake Total 1345 ml 720 ml 480 ml 480 ml Output Total 2500 ml 2400 ml 650 ml Balance -1155 ml -1680 ml -170 ml 480 ml Intake Oral 600 ml 720 ml 480 ml 480 ml IV Total 745 ml Output Urine Total 2500 ml 2400 ml 650 ml # Bowel Movements 0 Result Diagram: 07/30/1651407/30/16514 Objective Remarks GENERAL: This is a well-nourished, well-developed patient, in no apparent distress. SKIN: No rashes, warm and dry HEAD: Atraumatic. Normocephalic. EYES: Pupils equal round and reactive. Extraocular motions intact. No scleral icterus. ENT: Nose without bleeding, or drainage, Airway patent. NECK: Trachea midline. Supple CARDIOVASCULAR: Regular rate and rhythm without murmurs, gallops, or rubs. RESPIRATORY: Fair air entry bilaterally. No wheezes, rales, or rhonchi. GASTROINTESTINAL: Abdomen soft, non-tender, nondistended. Positive bowel sounds MUSCULOSKELETAL: Extremities without clubbing, cyanosis, or edema. Pedal pulses appreciated, right hand in dressing NEUROLOGICAL: Awake and alert. Moves all extremity. Normal speech.no focal neurological deficit Procedures see below A/P Problem List: (1) Abscess of ring finger ICD Code: L02.519 Status: Acute (2) Cellulitis of ring finger ICD Code: L03.019 Status: Acute Assessment and Plan 46 years old male with Right fourth digit and right hand cellulitis/abscess Leukocytosis with left shift Acute anemia hemoglobin dropped from 14-12 mostly postop Hypokalemia replaced, monitor level Plan: Status post incision and drainage 07/27/16 Iv vancomycin Wound culture showed MRSA and group A beta strep>> continue Vanco will switch to by mouth clindamycin if okay with surgery, fungal and AFB cultures still pending Surgeon requested ID consultation, discussed with Dr. Reyes, appreciate her how, recommended continuing him more iv antibiotic, and discharged on 10 days of clindamycin and Keflex, patient is high risk for noncompliance with antibiotics since he is homeless, he is extensively advised Pain medication with Duncan and morphine ED prophylaxis with ambulation Discharge Planning today or In a.m. on clindamycin okay with surgery Discharge patient to home Condition on discharge: Improved Regular Diet as tolerated Ad Tameka activity Rx written:clindamycin , percocet , lactinex Follow-up with primary care physician, hand surgeon as dirceted Addendum: I was called by the nurse, and surgeon requesting ID consult prior to discharge Problem Qualifiers (1) Cellulitis of ring finger: Qualified Code: L03.011 - Cellulitis of ring finger, right Chaka David MD Jul 30, 2016 11:05
[2016-07-30] MEDS ORDERED: PHARMACY ORDERED LAB XX ONE (11:45)
[2016-07-30] MEDS: ceFAZolin 2 GM PREMIX 50 ML IV SCH ×2 (12:19→20:00)
[2016-07-30 12:48] VITALS: BP 120/75; PULSE 74; RESP 16; TEMP 96.2; O2SAT 98
[2016-07-30 16:00] VITALS: BP 135/75; PULSE 84; RESP 16; TEMP 96.8; O2SAT 95
--- NOTE | 2016-07-30 19:30 | MP ---
cc: PATRICIA SHORT DATE OF SURGERY: 07/27/2016. PREOPERATIVE DIAGNOSIS: 1. Abscess, right ring finger. 2. Flexor tenosynovitis, right ring finger. POSTOPERATIVE DIAGNOSIS: 1. Abscess, right ring finger. 2. Flexor tenosynovitis, right ring finger. OPERATIVE PROCEDURE PERFORMED: 1. Incision and drainage of abscess, right ring finger. 2. Incision and drainage flexor tendon sheath, right ring finger. SURGEON: Patricia Short MD. ANESTHESIA: General and local. SPECIMEN: Cultures x2. DRAINS: Packing. TOURNIQUET TIME: None INDICATIONS FOR THE PROCEDURE: Alex Dejesus is a 46-year-old right-hand dominant male who states that he sustained a laceration over the dorsal aspect of his right ring finger several days ago and then today noted purulence from the volar aspect of the right ring finger. He elected to proceed with incision and drainage and admission for IV antibiotics. DESCRIPTION OF THE PROCEDURE IN DETAIL: The patient was identified in the preoperative holding area and the correct extremity was marked. The patient was taken back to the operating room where anesthesia was induced. The right upper extremities was prepped and draped in the normal sterile fashion. A tourniquet was placed but not utilized. There was an open area of the volar aspect of the finger with skin sloughing and purulence. This was sent for culture. This was extended slightly in a [place]uz[place] fashion. There was significant purulence along the flexor tendon sheath which was sent for culture. The wound was irrigated with six liters of antibiotic saline. The flexor tendon sheath was intact. The digital nerves were intact. The wound was closed loosely with chromic and the packing was placed. The patient was placed into a soft dressing awoken from anesthesia without any complications. He will remain in the hospital for IV antibiotics following the cultures and dressing changes. Patricia Short MD /JC /8:34 PM /7:16 PM [facility]
[2016-07-30 20:46] VITALS: BP 133/87; PULSE 74; RESP 22; TEMP 98.7; O2SAT 99
[2016-07-31 00:10] VITALS: BP 138/88; PULSE 77; RESP 20; TEMP 98.2; O2SAT 98
[2016-07-31] MEDS: VANCOMYCIN INJ 1,250 MG in SODIUM CHLOR 0.9% 250 ML INJ 250 ML IV SCH ×2 (00:22→12:34)
[2016-07-31] MEDS: HEPARIN SODIUM - SQ 10,000 UNITS/ML VIAL SQ SCH ×2 (00:27→08:49)
[2016-07-31] MEDS: DOCUSATE SODIUM 100 MG CAP PO SCH (00:27)
[2016-07-31] MEDS: ceFAZolin 2 GM PREMIX 50 ML IV SCH ×2 (03:26→12:34)
[2016-07-31 04:40] VITALS: BP 140/79; PULSE 78; RESP 22; TEMP 98.4; O2SAT 99
[2016-07-31 08:00] VITALS: BP 119/76; PULSE 78; RESP 16; TEMP 96.1; O2SAT 98
[2016-07-31] MEDS: SODIUM CHLOR 0.9% 1000 ML INJ 1,000 ML IV SCH (08:02)
--- NOTE | 2016-07-31 08:18 | HHI.DCPOC ---
Discharge Care Plan Diagnosis: (1) Abscess of ring finger Goals to Promote Your Health * To prevent worsening of your condition and complications * To maintain your health at the optimal level Directions to Meet Your Goals Take your medications as prescribed Follow your dietary instruction Follow activity as directed Keep your appointments as scheduled Take your immunizations and boosters as scheduled If your symptoms worsen call your PCP, if no PCP go to Urgent Care Center or Emergency Room Smoking is Dangerous to Your Health. Avoid second hand smoke Call the 24-hour hour crisis hotline for domestic abuse at Amy Duron MD Jul 31, 2016 08:18
--- NOTE | 2016-07-31 08:18 | HHI.DS ---
Discharge Summary Admission Date Jul 27, 2016 at 14:02 Discharge Date: Jul 31, 2016 Admitting Diagnosis R 4TH DIGIT CELLULITIS/ABSCESS WITH HAND CELLULITIS (1) Abscess of ring finger ICD Code: L02.519 (2) Cellulitis of ring finger ICD Code: L03.019 Procedures see below Brief History - From Admission 46 years old homeless man presented to the ED with complaint of right fourth digit swelling, redness and severe tenderness which extended to his right arm happened a few days ago after he had a metal piece of raised his finger, he applied antibiotic cream and dressing but it didn't get better and become purulent and draining, patient admitted having flulike syndrome last 24 hours, however no significant fever or chills or short of breath or nausea or vomiting , no abdominal pain diarrhea or constipation, he is up-to-date on his tetanus vaccination. He doesn't follow up with any physician he is not aware of having any medical problem CBC/BMP: 07/30/16 0515 07/30/16 0515 Significant Findings Laboratory Tests Test 07/30/16 05:15 Red Blood Count 4.41 MIL/MM3 (4.50-5.90) Hematocrit 38.9 % (39.0-51.0) Imaging Last Impressions Finger X-Ray 07/27/16 0000 Signed Impressions: Service Date/Time: Wednesday, July 27, 2016 12:32 - CONCLUSION: Soft tissue swelling without bony abnormality. Renny Helm MD PE at Discharge GENERAL: This is a well-nourished, well-developed patient, in no apparent distress. SKIN: No rashes, warm and dry HEAD: Atraumatic. Normocephalic. EYES: Pupils equal round and reactive. Extraocular motions intact. No scleral icterus. ENT: Nose without bleeding, or drainage, Airway patent. NECK: Trachea midline. Supple CARDIOVASCULAR: Regular rate and rhythm without murmurs, gallops, or rubs. RESPIRATORY: Fair air entry bilaterally. No wheezes, rales, or rhonchi. GASTROINTESTINAL: Abdomen soft, non-tender, nondistended. Positive bowel sounds MUSCULOSKELETAL: Extremities without clubbing, cyanosis, or edema. Pedal pulses appreciated, right hand in dressing NEUROLOGICAL: Awake and alert. Moves all extremity. Normal speech.no focal neurological deficit Pt update on day of discharge Patient reports that he is feeling good and requested to go home. Hospital Course 46-year-old male admitted with right ring finger cellulitis and abscess. The patient was followed by an surgery. He underwent incision and drainage on . He was treated with IV vancomycin. Cultures grew MRSA and grew a beta strep. Patient was seen by infectious disease recommended an additional day of IV antibiotics and discharged on oral clindamycin and Keflex for an additional 10 days. The patient was counseled extensively on the need to be compliant. He agreed to take the antibiotics as instructed. Pt Condition on Discharge: Good Discharge Disposition: Discharge Home Discharge Time: <= 30 minutes Discharge Instructions DIET: Follow Instructions for: As Tolerated, No Restrictions Activities you can perform: Weight Bearing as Joseph Other Activity Instructions: -Elevate right ring finger and ROM right ring finger Follow up Referrals: Hand Surgery - 1 Week with Patricia Short MD New Medications: Cephalexin (Keflex) 500 Mg Cap 500 MG PO Q6H Infection #40 Ref 0 CAP Clindamycin (Clindamycin) 300 Mg Cap 300 MG PO TID Infection #30 Ref 0 CAP Lactobacillus Acidophilus (Lactinex) 1 Chew 1 TAB CHEW TID Nutritional Supplement #90 Ref 0 TAB Hydrocodone-Acetaminophen (Hydrocodone-Acetaminophen) 5-325 mg Tab 1 TAB PO Q4H PRN PAIN SCALE 3 TO 5 #15 TAB Amy Duron MD Jul 31, 2016 08:18
[2016-07-31] MEDS: SODIUM CHLORIDE 0.9% FLUSH 5 ML FLUSH FLUSH SCH (08:49)
[2016-07-31 12:00] VITALS: BP 124/76; PULSE 80; RESP 16; TEMP 96.7; O2SAT 99
== END 2016-07-31 14:00 | disposition home or self-care (01) ==
LOC: NEPB 11:39 → NEDA 14:02 → INTOOBSV 14:02 → HSDI 14:54 → HOCB 21:06
PROVIDERS: ADMIT Family Medicine; ATTEND Family Medicine
DX: L03.113 Cellulitis of right upper limb (principal); M65.841 Other synovitis and tenosynovitis, right hand; D64.9 Anemia, unspecified; E87.6 Hypokalemia; D72.829 Elevated white blood cell count, unspecified; F17.200 Nicotine dependence, unspecified, uncomplicated; Z59.0 Homelessness
CPT/HCPCS: 01810; 26020; 73140; 80048; 80202; 82948; 85025; 85610; 86403; 87015; 87040; 87070; 87102; 87116; 87147; 87186; 87205; 87206; 96365; 99284; G0378; J0131; J0690; J1644; J2250; J2270; J2370; J2405; J3010; J3370; J7030; J7050

== ENCOUNTER 2016-11-19 21:32 | Inpatient (IN) | payer OTHER ==
[~2016-11-19] VITALS: Ht 165.1 cm; Wt 66.3 kg
[~2016-11-19 21:32] MED LIST changes: -ACET325S8 PO; +CEPH-460 PO; +CLIN1CAP6 PO; -GUAI600 PO; +HYDR-3516 PO; +LACTCHW3 CHEW; -LEVA750T PO
[2016-11-19 21:34] VITALS: BP 100/64; PULSE 80; RESP 16; TEMP 97.6; O2SAT 96
[2016-11-19] MEDS ORDERED: ASPIRIN 81 MG CHEW TAB PO STA (22:10)
[2016-11-19] MEDS ORDERED: SODIUM CHLOR 0.9% 1000 ML INJ 1,000 ML IV ONE (22:10)
[2016-11-19] MEDS ORDERED: NITROGLYCERIN 0.4 MG SL 25 TABS/BTL SL STA (22:10)
[2016-11-19] MEDS ORDERED: HEPARIN SODIUM - IV 10,000 UNITS/10 ML VIAL IV STA (22:10)
[2016-11-19] MEDS ORDERED: NITROGLYCERIN-DEXTROSE INJ 250 ML IV SCH (22:15)
[2016-11-19] MEDS ORDERED: SODIUM CHLORIDE 0.9% FLUSH 10 ML FLUSH IVF PRN (22:15)
--- NOTE | 2016-11-19 22:21 | PD ---
HPI Chief Complaint: Chest Pain Time Seen by Provider: 22:10 Travel History International Travel<30 days: No Contact w/Intl Traveler<30days: No Traveled to known affect area: No History of Present Illness HPI 46-year-old male with a history of tobacco use, presents today with complaints of one hour history of left sided chest pain with associated left arm pain. Patient reports associated shortness of breath. There is no nausea or diaphoresis. Patient has no history of hypertension, diabetes mellitus, coronary artery disease. Patient denies any family history of heart disease. The patient does state that he smokes a half pack of cigarettes a day. PFSH Past Medical History Arthritis: Yes Cancer: No Cardiovascular Problems: No Cerebrovascular Accident: No Diminished Hearing: No Endocrine: No Genitourinary: No Immune Disorder: No Musculoskeletal: Yes Neurologic: No Psychiatric: No Reproductive: No Respiratory: No Myocardial Infarction: No Seizures: No Past Surgical History Other Surgery: No Social History Alcohol Use: No Tobacco Use: Yes (0.5ppd) Substance Use: No Allergies-Medications (Allergen,Severity, Reaction): Coded Allergies: *MDRO Multi-Drug Resistant Organism (Verified Adverse Reaction, Unknown, ) MRSA (finger)-07/27/16 Reported Meds & Prescriptions Reported Meds & Active Scripts Active No Active Prescriptions or Reported Medications Review of Systems Except as stated in HPI: all other systems reviewed are Neg HENT: No: Neck Pain Cardiovascular: Positive: Chest Pain or Discomfort, No: Palpitations Respiratory: Positive: Shortness of Breath, No: Cough Gastrointestinal: Positive: Diarrhea, No: Nausea, Vomiting, Abdominal Pain Musculoskeletal: Positive: Pain, No: Myalgias, Weakness Neurologic: No: Weakness, Dizziness Physical Exam Narrative GENERAL: Well developed well-nourished gentleman in obvious discomfort. SKIN: Focused skin assessment warm/dry. HEAD: Atraumatic. Normocephalic. EYES: No scleral icterus. No injection or drainage. ENT: No nasal bleeding or discharge. Mucous membranes pink and moist. NECK: Trachea midline. No JVD. All. CARDIOVASCULAR: Regular rate and rhythm. No murmur appreciated. RESPIRATORY: No accessory muscle use. Clear to auscultation. Breath sounds equal bilaterally. GASTROINTESTINAL: Abdomen soft, non-tender, nondistended. MUSCULOSKELETAL: No obvious deformities. No clubbing. No cyanosis. No edema. NEUROLOGICAL: Awake and alert. No obvious cranial nerve deficits. Motor grossly within normal limits. Normal speech. Data Data Last Documented VS Vital Signs Date Time Temp Pulse Resp B/P Pulse Ox O2 Delivery O2 Flow Rate FiO2 11/19/16 22:23 100 Nasal Cannula 2 11/19/16 21:34 97.6 80 16 100/64 Orders Electrocardiogram (11/19/16 21:53) Complete Blood Count With Diff (11/19/16 21:53) Basic Metabolic Panel (Bmp) (11/19/16 21:53) Ckmb (Isoenzyme) Profile (11/19/16 21:53) Troponin I (11/19/16 21:53) Chest, Single Ap (11/19/16 21:53) Iv Access Insert/Monitor (11/19/16 21:53) Ecg Monitoring (11/19/16 21:53) Oxygen Administration (11/19/16 21:53) Oximetry (11/19/16 21:53) Troponin I (11/19/16 22:10) Ckmb (Isoenzyme) Profile (11/19/16 22:10) I-Stat Profile (11/19/16 22:10) I-Stat Creatinine (11/19/16 22:10) Calcium (11/19/16 22:10) Magnesium (Mg) (11/19/16 22:10) Prothrombin Time / Inr (Pt) (11/19/16 22:10) Act Partial Throm Time (Ptt) (11/19/16 22:10) B-Type Natriuretic Peptide (11/19/16 22:10) Electrocardiogram (11/19/16 22:10) Sodium Chlor 0.9% 1000 Ml Inj (Ns 1000 M (11/19/16 22:10) Sodium Chloride 0.9% Flush (Ns Flush) (11/19/16 22:15) Aspirin Chew (Aspirin Chew) (11/19/16 22:10) Nitroglycerin Sl (Nitrostat Sl) (11/19/16 22:10) Nitroglycerin-Dextrose Inj (Nitroglyceri (11/19/16 22:15) Heparin Inj (Heparin Inj) (11/19/16 22:10) Admit Order (Ed Use Only) (11/19/16 22:23) Labs Laboratory Tests Test 11/19/16 20:20 White Blood Count 18.3 TH/MM3 Red Blood Count 4.99 MIL/MM3 Hemoglobin 14.6 GM/DL Hematocrit 44.3 % Mean Corpuscular Volume 88.7 FL Mean Corpuscular Hemoglobin 29.3 PG Mean Corpuscular Hemoglobin 33.1 % Concent Red Cell Distribution Width 13.7 % Platelet Count 290 TH/MM3 Mean Platelet Volume 8.5 FL Neutrophils (%) (Auto) 78.6 % Lymphocytes (%) (Auto) 15.2 % Monocytes (%) (Auto) 4.6 % Eosinophils (%) (Auto) 0.3 % Basophils (%) (Auto) 1.3 % Neutrophils # (Auto) 14.4 TH/MM3 Lymphocytes # (Auto) 2.8 TH/MM3 Monocytes # (Auto) 0.8 TH/MM3 Eosinophils # (Auto) 0.1 TH/MM3 Basophils # (Auto) 0.2 TH/MM3 CBC Comment DIFF FINAL Differential Comment MDM Medical Decision Making Medical Screen Exam Complete: Yes Emergency Medical Condition: Yes Differential Diagnosis Acute ST elevation [place] versus angina equivalent versus pleurisy Narrative Course 46 year old gentleman with history of tobacco use, presents today with 1 hour history of left sided chest pain rating down his left arm. Patient has an acute inferior wall ST elevation [place]. The patient has her cervical changes in the anterior septal leads. The patient will be given heparin. Looking in the past visits, he has a history of hyperglycemia as a diagnosis. He states he has no history of diabetes mellitus. He's been started on the STEMI protocol. I spoke with Dr. Chester Rowell, on-call STEMI rug hooker, who is on his way in. As soon as he is ready for the Emery Grinder, we will immobilize him up to the Emery Grinder. Physician Communication Physician Communication 22:11: Dr. Chester Rowell was notified of the ST elevation AZ and is on his way in. Diagnosis Primary Impression: Acute ST elevation myocardial infarction (STEMI) of inferior wall Additional Impression: daily tobacco use Admitting Information Admitting Physician Requests: Admit Scripts No Active Prescriptions or Reported Meds Jeff Trinidad MD Nov 19, 2016 22:21
[2016-11-19 22:23] VITALS: O2SAT 100
[2016-11-19 22:28] VITALS: BP 122/86; PULSE 104; RESP 16; O2SAT 100
[2016-11-19] MEDS ORDERED: IOHEXOL 350 MG/ML 100 ML BTL (for Cath Lab) OTHER ONE (22:30)
[2016-11-19 22:31] VITALS: BP 101/69; PULSE 96; RESP 18; O2SAT 100
--- NOTE | 2016-11-19 22:35 | RADRPT ---
EXAM DATE/TIME: 11/19/2016 22:21 [facility] COMPARISON: CHEST SINGLE AP, June 22, 2015, 8:16. INDICATIONS : Code STEMI. Severe chest pain. MEDICAL HISTORY : None. SURGICAL HISTORY : None. ENCOUNTER: Initial ACUITY: 1 day PAIN SCORE: 10/10 LOCATION: Left chest FINDINGS: The heart size is normal. There is a calcified granuloma at the lateral left midlung. There is a calc ified node in the subcarinal region. Lungs are free of focal consolidation. No effusion is seen. CONCLUSION: No acute disease. Renny Mendoza MD on November 19, 2016 at 22:31 Board Certified Radiologist. This report was verified electronically.
[2016-11-19 22:36] LABS: AUTOMATED NEUTROPHIL # 14.4 TH/MM3 (1.8-7.7); BASOPHIL # 0.2 TH/MM3 (0-0.2); BASOPHIL % 1.3 % (0.0-2.0); EOSINOPHIL # 0.1 TH/MM3 (0-0.4); EOSINOPHIL % 0.3 % (0.0-4.0); HEMATOCRIT 44.3 % (39.0-51.0); HEMO FLAGS DIFF FINAL; LYMPH % 15.2 % (9.0-44.0); LYMPHOCYTE # 2.8 TH/MM3 (1.0-4.8); MEAN CELL VOLUME 88.7 FL (80.0-100.0); MEAN CORPUSCULAR HEMOGLOBIN 29.3 PG (27.0-34.0); MEAN CORPUSCULAR HGB CONC 33.1 % (32.0-36.0); MONO % 4.6 % (0.0-8.0); NEUT % 78.6 % (16.0-70.0); PLATELET COUNT 290 TH/MM3 (150-450); RED BLOOD COUNT 4.99 MIL/MM3 (4.50-5.90); RED CELL DISTRIBUTION WIDTH 13.7 % (11.6-17.2); WHITE BLOOD COUNT 18.3 TH/MM3 (4.0-11.0)
[2016-11-19 22:39] LABS: I-STAT POTASSIUM 4.2 MMOL/L (3.5-4.9)
[2016-11-19 22:40] VITALS: BP 104/71
[2016-11-19 22:46] LABS: APTT (PATIENT) 25.7 SEC (24.3-30.1)
[2016-11-19] MEDS ORDERED: HEPARIN-NS/PF INJ 500 ML ONE (22:46)
[2016-11-19] MEDS ORDERED: MIDAZOLAM HCL 2 MG/2 ML VIAL ONE (22:49)
[2016-11-19 22:55] LABS: ANION GAP 6 MEQ/L (5-15); BICARBONATE 27.2 MEQ/L (21.0-32.0); BLOOD UREA NITROGEN 14 MG/DL (7-18); CHLORIDE 108 MEQ/L (98-107); GLOMERULAR FILTRATION RATE 70 ML/MIN (>89); POTASSIUM 3.9 MEQ/L (3.5-5.1); SODIUM (NA) 141 MEQ/L (136-145)
[2016-11-19 22:56] LABS: MAGNESIUM 2.3 MG/DL (1.5-2.5)
[2016-11-19 22:58] LABS: CREATINE KINASE 256 U/L (39-308)
[2016-11-19] MEDS ORDERED: BIVALIRUDIN 250 MG VIAL ONE (22:58)
[2016-11-19 23:10] LABS: CKMB 1.3 NG/ML (0.5-3.6)
[2016-11-19] MEDS ORDERED: TICAGRELOR 90 MG TAB PO ONE (23:23)
[2016-11-19] MEDS ORDERED: PHENYLEPH/NS 1000 MCG/10 ML SYR ONE (23:27)
[2016-11-19] MEDS ORDERED: SODIUM CHLOR 0.9% 1000 ML INJ 1,000 ML IV SCH (23:51)
[2016-11-20] VITALS (37 sets, daily range): BP systolic 83–106; BP diastolic 56–66; PULSE 67–165; RESP 16–18; TEMP 97.7–99.3; O2SAT 96–99
[2016-11-20] MEDS ORDERED: TEMAZEPAM 15 MG CAP PO PRN
[2016-11-20] MEDS ORDERED: ACETAMINOPHEN 325 MG TAB PO PRN
[2016-11-20] MEDS ORDERED: ONDANSETRON HCL 4 MG/2 ML VIAL IV PRN
[2016-11-20] MEDS ORDERED: MORPHINE SULFATE 4 MG/ML INJ IV PUSH PRN
[2016-11-20] MEDS ORDERED: oxyCODONE/ACETAMINOPHEN 5 MG/325 MG TAB PO PRN
[2016-11-20] MEDS ORDERED: MISC INFORMATION XX ONE
[2016-11-20] MEDS ORDERED: PILL SPLITTER OTHER PRN (00:15)
[2016-11-20] MEDS: BIVALIRUDIN INJ 250 MG in SODIUM CHLORIDE 0.9% INJ 50 ML IV SCH ×2 (00:37→02:26)
--- NOTE | 2016-11-20 04:12 | MH ---
cc: LOLIS CASTILLO DATE OF ADMISSION: 11/19/2016 ADMITTING DIAGNOSIS: 1. Acute inferoposterior ST-segment elevation NE. 2. Tobacco abuse. CHIEF COMPLAINT Chest pain. HISTORY OF PRESENT ILLNESS Alex Dejesus is a 46-year-old man with no prior cardiac history developed acute onset of chest pain one hour prior to admission. The chest pain with severe associated with shortness of breath, denies a family history of coronary artery disease. There is no prior history of diabetes or diabetes. No history of any prior medical problems. He has smoked since age 18, half to one pack of cigarettes per day. MEDICATIONS PRIOR TO ADMISSION None. PAST MEDICAL HISTORY: Arthritis. Lacerations. PAST SURGICAL HISTORY Negative. SOCIAL HISTORY The patient is unemployed. He smokes as described above. Denies alcohol. Denies illicit drug use. REVIEW OF SYSTEMS: Review of systems is negative for bleeding. Remaining review of systems negative as well. PHYSICAL EXAMINATION: The physical exam reveals a thin, middle-aged man, who appears older than stated age. Vital signs: Charted. HEENT: Exam is unremarkable. Neck: Shows no JVD. CHEST: Shows few bilateral wheezes. Cardiac: Exam shows S1, S2, S4, regular rate and rhythm. No S3. Abdomen: Soft, nontender. Extremities: No clubbing, cyanosis or edema. Pulses are intact. EKG: EKG shows an acute inferoposterior stenting. Labs are charted. PLAN The patient has had circumflex artery stented. Will initiate aspirin and Brilinta. Will introduce CLAUDIA inhibitor, beta blockers and statins as he tolerates. Anticipated hospital stay two days. MD YORDAN Ambriz/ATIYA /11:56 PM /3:53 AM
--- NOTE | 2016-11-20 05:04 | MA ---
cc: LOLIS CASTILLO DATE: 11/19/2016 PROCEDURE PERFORMED: Left heart catheterization, left ventriculography, coronary angiography with angioplasty and stenting of the mid circumflex artery, right femoral angiography with Angio-Seal placement. DESCRIPTION OF PROCEDURE: The patient was brought to the cardiac cath lab nurse with an acute inferoposterior OK. He appeared very ill. He was prepped and draped in sterile fashion. I gave him 1 milligram of Versed for sedation. Using 1% lidocaine for local anesthesia, a 6.5 Setswana sheath was inserted in the right femoral artery. Left coronary angiography was then completed using a left 4 Joann. Right coronary angiography was completed using a 3DRC catheter. We then used a 6 Setswana XB 3.5 guiding catheter to engage the circumflex artery. The circumflex artery was then wired with a BMW wire. There was now YORDAN-2 flow with a discrete lesion just passed the obtuse marginal branch. I ballooned this with a 2.5 millimeter balloon. I then stented it with a 3.0 x 12 millimeter Resolute stent at 12 atmospheres. I then post dilated the stent with a 3.25 x 8 millimeter NC balloon at 18 atmospheres for two inflations. An excellent angiographic results was achieved. During the procedure the patient became profoundly hypotensive. He received a bolus of Milind-Synephrine and then a dopamine drip. Following reperfusion the hypotension gradually resolved. He had some idioventricular rhythm and then eventually converted to sinus. His blood pressure came up to 100. The dopamine was able to be turned off. An LV gram was then performed. Right femoral angiography was then performed followed by uncomplicated Angio-Seal placement. There were no complications. Estimated blood loss was 10 cc. FINDINGS: Hemodynamics. Left ventricular pressure was 101/13 with an end-diastolic pressure of 27. Aortic pressure is 101/63 with a mean of 81. There was no gradient during pullback from the left ventricle to the aorta. Left ventriculography: Left ventriculography shows inferior akinesis. Estimated ejection fraction is 40%. Coronary angiography: Coronary circulation is left dominant. The left main coronary artery appears short. Left anterior descending artery is a somewhat small caliber vessel but with no significant stenosis. The first diagonal branch probably has about 25% diffuse proximal narrowing. The circumflex artery is dominant. There is severely diseased bifurcating obtuse marginal branch coming off proximally just past the obtuse marginal branch, the mid circumflex artery is totally occluded. The right coronary is nondominant and diffusely diseased with diffuse 30% stenosis. RESULTS OF INTERVENTION: Following stenting of the mid circumflex vessel, there is a 0% residual stenosis and resumption of YORDAN-3 flow. The stent was carefully positioned in an attempt to avoid jailing the obtuse marginal branch. The stent looks very close to the origin of the obtuse marginal branch. It may be partially covering it but does not fully custodial the marginal branch. The obtuse marginal branch itself is small caliber, only 2 mm in diameter and it bifurcates. One limb of the bifurcation is 30% diseased, the other more inferior branch of the bifurcation has about 70% diseased. This will be treated medically. CONCLUSION: 1. Moderately impaired LV function, EF 40%. 2. Acute OK secondary to occlusion of a dominant circumflex vessel. There is essentially single vessel disease. 3. Successful stenting of the circumflex vessel. PLAN: The patient will continue on aspirin 81 mg and Brilinta. Will introduce CLAUDIA inhibitor and beta blockers as hemodynamics permit. He will be counseled to quit smoking. Lipids will be checked and a statin will be initiated. Anticipated hospital stay is two days. MD YORDAN Ambriz/ATIYA /11:49 PM /4:34 AM
[2016-11-20 05:15] LABS: AUTOMATED NEUTROPHIL # 9.5 TH/MM3 (1.8-7.7); BASOPHIL % 0.4 % (0.0-2.0); EOSINOPHIL % 0.1 % (0.0-4.0); HEMATOCRIT 38.4 % (39.0-51.0); HEMO FLAGS DIFF FINAL; LYMPH % 19.5 % (9.0-44.0); LYMPHOCYTE # 2.5 TH/MM3 (1.0-4.8); MEAN CELL VOLUME 88.7 FL (80.0-100.0); MEAN CORPUSCULAR HGB CONC 32.7 % (32.0-36.0); PLATELET COUNT 220 TH/MM3 (150-450); RED BLOOD COUNT 4.33 MIL/MM3 (4.50-5.90); RED CELL DISTRIBUTION WIDTH 13.3 % (11.6-17.2); WHITE BLOOD COUNT 12.7 TH/MM3 (4.0-11.0)
[2016-11-20 05:37] LABS: ANION GAP 5 MEQ/L (5-15); AST (GOT) 227 U/L (15-37); BICARBONATE 23.5 MEQ/L (21.0-32.0); BLOOD UREA NITROGEN 15 MG/DL (7-18); CHLORIDE 111 MEQ/L (98-107); GLOMERULAR FILTRATION RATE 98 ML/MIN (>89); MAGNESIUM 2.1 MG/DL (1.5-2.5); POTASSIUM 3.9 MEQ/L (3.5-5.1); SODIUM (NA) 139 MEQ/L (136-145)
[2016-11-20 05:38] LABS: ALT (GPT) 19 U/L (12-78)
[2016-11-20 06:02] LABS: ALKALINE PHOSPHATASE 84 U/L (45-117); CREATINE KINASE 2290 U/L (39-308); HDL CHOLESTEROL 29.9 MG/DL (40.0-60.0); LDL CHOLESTEROL 108 MG/DL (0-99); TOTAL BILIRUBIN ADULT 0.3 MG/DL (0.2-1.0)
--- NOTE | 2016-11-20 08:00 | PD.CONS ---
HPI Service [facility] Consult Requested By Dr. Rowell Reason for Consult Chest pain, medical management Primary Care Physician No Primary Care Physician Diagnoses: History of Present Illness This is a 46-year-old male, no comorbidities, presented to the hospital last night with chest pain, 10 over 10, left substernal area, radiating to the left arm, associated with nausea and shortness of breath, which lasted for about an hour. Patient does not have any history of heart problems in the family, current smoker, one half pack a day since 18 years old. Patient was found to have an inferior AZ, went to cardiac catheterization, had the circumflex stented. Recently, patient is chest pain-free. 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 Lacerations. Past Surgical History No previous surgery Reported Medications None Family History No h/o AZ or DM in the family Social History Smokes 1/2 pack a day since 18 yo. No significant alcohol use. Physical Exam Vital Signs Vital Signs Date Time Temp Pulse Resp B/P Pulse Ox O2 Delivery O2 Flow Rate FiO2 11/20/16 07:49 88 11/20/16 07:49 97.8 81 18 91/64 98 11/20/16 06:02 81 11/20/16 05:56 130 11/20/16 05:06 84 11/20/16 04:09 149 11/20/16 04:06 141 11/20/16 04:05 165 11/20/16 04:03 87 11/20/16 03:46 98.3 85 18 83/63 98 11/20/16 03:28 156 11/20/16 03:26 106 11/20/16 03:18 130 11/20/16 03:18 113 11/20/16 03:07 95 11/20/16 02:56 138 11/20/16 02:11 86 11/20/16 01:28 135 11/20/16 01:09 151 11/20/16 01:06 97 11/20/16 01:04 98.5 100 16 104/66 99 Manual Cuff/Auscultation 11/20/16 00:00 100 11/19/16 22:40 95 16 104/71 100 Nasal Cannula 2 11/19/16 22:31 96 18 101/69 100 Nasal Cannula 2 11/19/16 22:28 104 16 122/86 100 Nasal Cannula 2 11/19/16 22:23 100 Nasal Cannula 2 11/19/16 22:12 100 Nasal Cannula 2 11/19/16 21:34 97.6 80 16 100/64 96 Room Air Physical Exam Not in distress, well-nourished, looks stated age PERRL, pink conjunctiva without injection, anicteric Nose without bleeding, airway patent, oropharynx clear Supple neck, no masses or thyromegaly, trachea midline Normal rate and regular rhythm, no murmurs gallops or rubs appreciated. Clear to auscultation and symmetric bilaterally, normal respiratory effort. Normal bowel sounds, soft, non-tender, nondistended, no guarding. Extremities without clubbing, cyanosis, or edema. No rash of generalized distribution. Skin is warm and dry. AAO x3, no cranial nerve deficits, moves all 4 extremities, no focal neurologic deficits Normal mood, appropriate affect Laboratory Laboratory Tests Test 11/19/16 11/19/16 11/19/16 11/20/16 20:20 21:15 22:15 04:06 White Blood Count 18.3 12.7 Red Blood Count 4.99 4.33 Hemoglobin 14.6 12.5 Hematocrit 44.3 38.4 Mean Corpuscular Volume 88.7 88.7 Mean Corpuscular Hemoglobin 29.3 29.0 Mean Corpuscular Hemoglobin 33.1 32.7 Concent Red Cell Distribution Width 13.7 13.3 Platelet Count 290 220 Mean Platelet Volume 8.5 8.2 Neutrophils (%) (Auto) 78.6 75.0 Lymphocytes (%) (Auto) 15.2 19.5 Monocytes (%) (Auto) 4.6 5.0 Eosinophils (%) (Auto) 0.3 0.1 Basophils (%) (Auto) 1.3 0.4 Neutrophils # (Auto) 14.4 9.5 Lymphocytes # (Auto) 2.8 2.5 Monocytes # (Auto) 0.8 0.6 Eosinophils # (Auto) 0.1 0.0 Basophils # (Auto) 0.2 0.0 CBC Comment DIFF FINAL DIFF FINAL Differential Comment Sodium Level 141 139 Potassium Level 3.9 3.9 Chloride Level 108 111 Carbon Dioxide Level 27.2 23.5 Anion Gap 6 5 Blood Urea Nitrogen 14 15 Creatinine 1.13 0.84 Estimat Glomerular Filtration 70 98 Rate Random Glucose 119 139 Calcium Level 8.7 8.7 8.3 Total Creatine Kinase 086 374 7717 Creatine Kinase MB 1.3 249.0 Troponin I 0.02 0.03 Prothrombin Time 11.0 Prothromb Time International 1.0 Ratio Activated Partial 25.7 Thromboplast Time B-Type Natriuretic Peptide 12 Bedside Hemoglobin 16.0 Bedside Hematocrit 47.0 Bedside Sodium 142 Bedside Potassium 4.2 Bedside Chloride 105 Bedside Blood Urea Nitrogen 15 Bedside Creatinine 1.0 Bedside Glucose 131 Magnesium Level 2.3 2.1 Total Bilirubin 0.3 Aspartate Amino Transf 227 (AST/SGOT) Alanine Aminotransferase 19 (ALT/SGPT) Alkaline Phosphatase 84 Creatine Kinase MB % 10.9 Total Protein 6.7 Albumin 3.0 Triglycerides Level 126 Cholesterol Level 163 LDL Cholesterol 108 HDL Cholesterol 29.9 Cholesterol/HDL Ratio 5.45 Result Diagram: 11/20/166 11/20/16405 Imaging Last Impressions Chest X-Ray 11/19/162152 Signed Impressions: Service Date/Time: Monday, November 19, 2016 22:21 - CONCLUSION: No acute disease. Renny Mendoza MD Assessment and Plan Problem List: (1) Acute ST elevation myocardial infarction (STEMI) of inferior wall ICD Code: I21.19 Status: Acute (2) Leucocytosis ICD Code: D72.829 Status: Acute Assessment and Plan This is a 46-year-old male with no comorbidities who presented with chest pain ST elevated myocardial infarction -EKG showed possible inferior AZ, troponin was 10. Patient went to cardiac catheterization emergently, status post stenting of the mid circumflex artery. Patient started on aspirin statin, lisinopril, metoprolol and Brilinta. Discussed with patient regarding need for compliance and smoking cessation. Patient agreed. Heart rate still in the 90s , blood pressure control. LDL is 108. Leukocytosis-likely stress-induced versus secondary to AZ. Monitor, recheck tomorrow. Denies any cough, shortness of breath or urinary symptoms. DVT prophylaxis: On Brilinta, low risk. Thank you very much for this consultation, we will follow along with you. Discussed Condition With Likely discharge tomorrow after cleared by cardiology Ken Gutierrez MD Nov 20, 2016 08:00
--- NOTE | 2016-11-20 08:34 | HHI.DCPOC ---
Discharge Care Plan Diagnosis: (1) Acute ST elevation myocardial infarction (STEMI) of inferior wall (2) Leucocytosis Your Health Problems Are: Chest Pain Goals to Promote Your Health * To prevent worsening of your condition and complications * To maintain your health at the optimal level Directions to Meet Your Goals Take your medications as prescribed Follow your dietary instruction Follow activity as directed Keep your appointments as scheduled Take your immunizations and boosters as scheduled If your symptoms worsen call your PCP, if no PCP go to Urgent Care Center or Emergency Room Smoking is Dangerous to Your Health. Avoid second hand smoke Call the 24-hour hour crisis hotline for domestic abuse at Ken Gutierrez MD Nov 20, 2016 08:34
[2016-11-20] MEDS ORDERED: LISI-519 PO (08:38)
[2016-11-20] MEDS ORDERED: METO25TA3 PO (08:38)
[2016-11-20] MEDS ORDERED: ASPI81CH25 PO (08:38)
[2016-11-20] MEDS ORDERED: ATOR40TA16 PO (08:38)
[2016-11-20] MEDS ORDERED: BRIL90TA PO (08:38)
[2016-11-20] MEDS: LISINOPRIL 5 MG TAB PO SCH (08:58)
[2016-11-20] MEDS: ATORVASTATIN 40 MG TAB PO SCH (08:58)
[2016-11-20] MEDS: METOPROLOL TARTRATE 25 MG TAB PO SCH ×3 (08:58→20:15)
[2016-11-20] MEDS: TICAGRELOR 90 MG TAB PO SCH ×2 (08:59→20:14)
[2016-11-20] MEDS: SODIUM CHLORIDE 0.9% FLUSH 10 ML FLUSH IV FLUSH SCH ×2 (08:59→20:20)
[2016-11-20] MEDS: ASPIRIN 81 MG CHEW TAB PO SCH (08:59)
[2016-11-20] MEDS ORDERED: ATORVASTATIN 40 MG TAB PO SCH (09:00)
--- NOTE | 2016-11-20 12:03 | PD.CARD.PN ---
Subjective Subjective Remarks No angina. No CV complaints Objective Medications Current Medications Medications (Trade) Dose Ordered Sig/Mckenna Route Start Time Stop Time Status Last Admin Sodium Chloride 2 ml 2 ml UNSCH PRN IVF 11/19/16 22:15 (Nitroglycerin-Dextrose Inj) 250 ml @ 0 mls/hr TITRATE IV 11/19/16 22:15 (NS Flush) 2 ml BID IV FLUSH 11/20/16 09:00 11/20/16 08:59 (Tylenol) 325 mg Q4H PRN PO 11/20/16 00:00 (Percocet 5-325 Mg) 1 tab Q4H PRN PO 11/20/16 00:00 (Morphine Inj) 2 mg Q30M PRN IV PUSH 11/20/16 00:00 (Restoril) 15 mg HS PRN PO 11/20/16 00:00 (Aspirin Chew) 81 mg DAILY PO 11/20/16 09:00 11/20/16 08:59 (Brilinta) 90 mg BID PO 11/20/16 09:00 11/20/16 08:59 (Zofran Inj) 4 mg Q4H PRN IV 11/20/16 00:00 (Lopressor) 12.5 mg BID PO 11/20/16 09:00 (Prinivil) 2.5 mg DAILY PO 11/20/16 09:00 (Lipitor) 40 mg DAILY PO 11/20/16 09:00 11/20/16 08:58 (Pill Splitter) 1 ea UNSCH PRN OTHER 11/20/16 00:15 Vital Signs / I&O Vital Signs Date Time Temp Pulse Resp B/P Pulse Ox O2 Delivery O2 Flow Rate FiO2 11/20/16 11:27 78 11/20/16 11:27 98.6 86 18 91/56 99 11/20/16 10:24 67 11/20/16 09:28 72 11/20/16 08:18 95 11/20/16 07:49 88 11/20/16 07:49 97.8 81 18 91/64 98 11/20/16 06:02 81 11/20/16 05:56 130 11/20/16 05:06 84 11/20/16 04:09 149 11/20/16 04:06 141 11/20/16 04:05 165 11/20/16 04:03 87 11/20/16 03:46 98.3 85 18 83/63 98 11/20/16 03:28 156 11/20/16 03:26 106 11/20/16 03:18 130 11/20/16 03:18 113 11/20/16 03:07 95 11/20/16 02:56 138 11/20/16 02:11 86 11/20/16 01:28 135 11/20/16 01:09 151 11/20/16 01:06 97 11/20/16 01:04 98.5 100 16 104/66 99 Manual Cuff/Auscultation 11/20/16 00:00 100 11/19/16 22:40 95 16 104/71 100 Nasal Cannula 2 11/19/16 22:31 96 18 101/69 100 Nasal Cannula 2 11/19/16 22:28 104 16 122/86 100 Nasal Cannula 2 11/19/16 22:23 100 Nasal Cannula 2 11/19/16 22:12 100 Nasal Cannula 2 11/19/16 21:34 97.6 80 16 100/64 96 Room Air I/O 11/19/16 11/19/16 11/19/16 11/20/16 11/20/16 11/20/16 07:00 15:00 23:00 07:00 15:00 23:00 Intake Total 1652 ml Balance 1652 ml Intake Oral 240 ml IV Total 1412 ml Physical Exam GENERAL: Well developed, well nourished. No acute distress. HEENT: Jugular venous pressure is normal. CHEST: Lungs clear to auscultation bilaterally. Unlabored respiratory effort. CARDIAC: Regular rate and rhythm without S3, S4, or murmur. ABDOMEN: Soft, nontender, no hepatosplenomegaly. Bowel sounds present. EXTREMITIES: No clubbing, cyanosis, or edema. Right groin OK TELE: NSVT last night, better now EKG: ST's fully recovered Laboratory Laboratory Tests Test 11/19/16 11/19/16 11/19/16 11/20/16 20:20 21:15 22:15 04:06 White Blood Count 18.3 TH/MM3 12.7 TH/MM3 Red Blood Count 4.99 MIL/MM3 4.33 MIL/MM3 Hemoglobin 14.6 GM/DL 12.5 GM/DL Hematocrit 44.3 % 38.4 % Mean Corpuscular Volume 88.7 FL 88.7 FL Mean Corpuscular Hemoglobin 29.3 PG 29.0 PG Mean Corpuscular Hemoglobin 33.1 % 32.7 % Concent Red Cell Distribution Width 13.7 % 13.3 % Platelet Count 290 TH/MM3 220 TH/MM3 Mean Platelet Volume 8.5 FL 8.2 FL Neutrophils (%) (Auto) 78.6 % 75.0 % Lymphocytes (%) (Auto) 15.2 % 19.5 % Monocytes (%) (Auto) 4.6 % 5.0 % Eosinophils (%) (Auto) 0.3 % 0.1 % Basophils (%) (Auto) 1.3 % 0.4 % Neutrophils # (Auto) 14.4 TH/MM3 9.5 TH/MM3 Lymphocytes # (Auto) 2.8 TH/MM3 2.5 TH/MM3 Monocytes # (Auto) 0.8 TH/MM3 0.6 TH/MM3 Eosinophils # (Auto) 0.1 TH/MM3 0.0 TH/MM3 Basophils # (Auto) 0.2 TH/MM3 0.0 TH/MM3 CBC Comment DIFF FINAL DIFF FINAL Differential Comment Sodium Level 141 MEQ/L 139 MEQ/L Potassium Level 3.9 MEQ/L 3.9 MEQ/L Chloride Level 108 MEQ/L 111 MEQ/L Carbon Dioxide Level 27.2 MEQ/L 23.5 MEQ/L Anion Gap 6 MEQ/L 5 MEQ/L Blood Urea Nitrogen 14 MG/DL 15 MG/DL Creatinine 1.13 MG/DL 0.84 MG/DL Estimat Glomerular Filtration 70 ML/MIN 98 ML/MIN Rate Random Glucose 119 MG/DL 139 MG/DL Calcium Level 8.7 MG/DL 8.7 MG/DL 8.3 MG/DL Total Creatine Kinase 256 U/L 263 U/L 2290 U/L Creatine Kinase MB 1.3 NG/ML 249.0 NG/ML Troponin I 0.02 NG/ML 0.03 NG/ML Prothrombin Time 11.0 SEC Prothromb Time International 1.0 RATIO Ratio Activated Partial 25.7 SEC Thromboplast Time B-Type Natriuretic Peptide 12 PG/ML Bedside Hemoglobin 16.0 G/DL Bedside Hematocrit 47.0 % Bedside Sodium 142 MMOL/L Bedside Potassium 4.2 MMOL/L Bedside Chloride 105 MMOL/L Bedside Blood Urea Nitrogen 15 MG/DL Bedside Creatinine 1.0 MG/DL Bedside Glucose 131 MG/DL Magnesium Level 2.3 MG/DL 2.1 MG/DL Total Bilirubin 0.3 MG/DL Aspartate Amino Transf 227 U/L (AST/SGOT) Alanine Aminotransferase 19 U/L (ALT/SGPT) Alkaline Phosphatase 84 U/L Creatine Kinase MB % 10.9 % Total Protein 6.7 GM/DL Albumin 3.0 GM/DL Triglycerides Level 126 MG/DL Cholesterol Level 163 MG/DL LDL Cholesterol 108 MG/DL HDL Cholesterol 29.9 MG/DL Cholesterol/HDL Ratio 5.45 RATIO Imaging Last 48 hours Impressions Chest X-Ray 11/19/16 6992 Signed Impressions: Service Date/Time: Monday, November 19, 2016 22:21 - CONCLUSION: No acute disease. Renny Mendoza MD Assessment and Plan Problem List: (1) Tobacco abuse Assessment and Plan: Counseled complete cessation (2) Acute ST elevation myocardial infarction (STEMI) of inferior wall Assessment and Plan: IL secondary to occlusion of large dominant LCX. Good stent result. BP low but he is adequately perfusing (3) Stented coronary artery Assessment and Plan: Cont ASA 81mg uncoated and Brilinta 90mg bid Assessment and Plan Check echo tomorrow. Gradual increase in activity Chester Rowell MD Nov 20, 2016 12:03
--- NOTE | 2016-11-20 13:22 | EKG ---
Date Performed: 11/19/2016 Time Performed: 22:02:13 PTAGE: 46 years EKG: Sinus rhythm POSSIBLE LEFT ATRIAL ENLARGEMENT BORDERLINE RIGHT AXIS DEVIATION ST ELEVATION, CONSIDER INFERIOR INJ URY ACUTE MN NO PREVIOUS TRACING DOCTOR: Magali Parks Interpretating Date/Time 11/20/2016 13:18:50
--- NOTE | 2016-11-20 13:40 | EKG ---
Date Performed: 11/20/2016 Time Performed: 06:01:46 PTAGE: 46 years EKG: Sinus rhythm with PVC(s) Possible inferior infarct - age undetermined Compared to previous tracing, the ST segmen t elevation infarct involving the inferior wall and the reciprocal lateral ST segment changes have re solved. Tracing is consistent with an eruption of an inferior wall transmural infarct. The PVC's are new. Abnormal ECG PREVIOUS TRACING : 11/19/2016 22.02 DOCTOR: Magali Parks Interpretating Date/Time 11/20/2016 13:40:07
--- NOTE | 2016-11-20 15:07 | ECHRPT ---
Indication: cad CONCLUSIONS Hypokinetic basal inferior wall motion. Hypokinetic mid-inferior wall motion. Hypokinetic apical-inferior wall motion. Normal left ventricular size. Wall thickness is normal. The left ventricular systolic function is moderately reduced with an estimated ejection fraction in the range of 40-45%. The right ventricular size is normal. Trace mitral valve regurgitation. The aortic valve is not well visualized. Aortic valve sclerosis is present. There is mild tricuspid valve regurgitation. The estimated pulmonary arterial pressure is _28_ mmHg. The pulmonary valve is not well visualized. BP: / HR: Rhythm: MEASUREMENTS (Male / Female) Normal Values Technical Quality:Fair 2D ECHO LV Diastolic Diameter PLAX 4.8 cm 4.2 - 5.9 / 3.9 - 5.3 cm LV Systolic Diameter PLAX 4.1 cm IVS Diastolic Thickness 0.9 cm 0.6 - 1.0 / 0.6 - 0.9 cm LVPW Diastolic Thickness 0.9 cm 0.6 - 1.0 / 0.6 - 0.9 cm LV Relative Wall Thickness 0.4 RV Internal Dim ED PLAX 2.5 cm M-MODE Aortic Root Diameter MM 3.0 cm LA Systolic Diameter MM 2.4 cm LA Ao Ratio MM 0.8 AV Cusp Separation MM 1.6 cm DOPPLER Mitral E Point Velocity 80.5 cm/s Mitral A Point Velocity 63.2 cm/s Mitral E to A Ratio 1.3 LV E' Lateral Velocity 8.0 cm/s Mitral E to LV E' Lateral Ratio 10.1 LV E' Septal Velocity 6.3 cm/s Mitral E to LV E' Septal Ratio 12.7 TR Peak Velocity 265.0 cm/s TR Peak Gradient 28.1 mmHg FINDINGS LEFT VENTRICLE Hypokinetic basal inferior wall motion. Hypokinetic mid-inferior wall motion. Hypokinetic apical-inferior wall motion. Normal left ventricular size. Wall thickness is normal. The left ventricular systolic function is moderately reduced with an estimated ejection fraction in the range of 40-45%. RIGHT VENTRICLE The right ventricular size is normal. LEFT ATRIUM The left atrial size is normal. RIGHT ATRIUM The right atrial size is normal. ATRIAL SEPTUM Normal atrial septal thickness without atrial level shunting by limited color doppler interrogation. AORTA The aortic root and proximal ascending aorta are normal in size on limited imaging. MITRAL VALVE Structurally normal mitral valve. Trace mitral valve regurgitation. AORTIC VALVE The aortic valve is not well visualized. Aortic valve sclerosis is present. TRICUSPID VALVE Structurally normal tricuspid valve. There is mild tricuspid valve regurgitation. The estimated pulmonary arterial pressure is _28_ mmHg. PULMONARY VALVE The pulmonary valve is not well visualized. No pulmonary valve regurgitation or stenosis. VESSELS The inferior vena cava is normal in size. PERICARDIUM No pericardial effusion. Mckinley Arias MD (Electronically Signed) Final Date:20 November 2016 15:06
[2016-11-21] VITALS (14 sets, daily range): BP systolic 91–130; BP diastolic 60–68; PULSE 57–80; RESP 16; TEMP 98.1–98.6; O2SAT 97–98
[2016-11-21 05:59] LABS: HEMATOCRIT 37.9 % (39.0-51.0); MEAN CELL VOLUME 88.2 FL (80.0-100.0); MEAN CORPUSCULAR HEMOGLOBIN 29.4 PG (27.0-34.0); MEAN CORPUSCULAR HGB CONC 33.3 % (32.0-36.0); PLATELET COUNT 228 TH/MM3 (150-450); RED BLOOD COUNT 4.29 MIL/MM3 (4.50-5.90); RED CELL DISTRIBUTION WIDTH 13.6 % (11.6-17.2); REVIEW FLAG FINAL; WHITE BLOOD COUNT 10.7 TH/MM3 (4.0-11.0)
[2016-11-21] MEDS: LISINOPRIL 5 MG TAB PO SCH (08:20)
[2016-11-21] MEDS: ASPIRIN 81 MG CHEW TAB PO SCH (08:20)
[2016-11-21] MEDS: SODIUM CHLORIDE 0.9% FLUSH 10 ML FLUSH IV FLUSH SCH (08:20)
[2016-11-21] MEDS: METOPROLOL TARTRATE 25 MG TAB PO SCH (08:20)
[2016-11-21] MEDS: TICAGRELOR 90 MG TAB PO SCH (08:20)
[2016-11-21] MEDS: ATORVASTATIN 40 MG TAB PO SCH (08:20)
--- NOTE | 2016-11-21 10:21 | PD.CARD.PN ---
Subjective Subjective Remarks No angina or SOB Objective Medications Current Medications Medications (Trade) Dose Ordered Sig/Mckenna Route Start Time Stop Time Status Last Admin Sodium Chloride 2 ml 2 ml UNSCH PRN IVF 11/19/16 22:15 (Nitroglycerin-Dextrose Inj) 250 ml @ 0 mls/hr TITRATE IV 11/19/16 22:15 (NS Flush) 2 ml BID IV FLUSH 11/20/16 09:00 11/21/16 08:20 (Tylenol) 325 mg Q4H PRN PO 11/20/16 00:00 (Percocet 5-325 Mg) 1 tab Q4H PRN PO 11/20/16 00:00 (Morphine Inj) 2 mg Q30M PRN IV PUSH 11/20/16 00:00 (Restoril) 15 mg HS PRN PO 11/20/16 00:00 (Aspirin Chew) 81 mg DAILY PO 11/20/16 09:00 11/21/16 08:20 (Brilinta) 90 mg BID PO 11/20/16 09:00 11/21/16 08:20 (Zofran Inj) 4 mg Q4H PRN IV 11/20/16 00:00 (Lopressor) 12.5 mg BID PO 11/20/16 09:00 11/21/16 08:20 (Prinivil) 2.5 mg DAILY PO 11/20/16 09:00 11/21/16 08:20 (Lipitor) 40 mg DAILY PO 11/20/16 09:00 11/21/16 08:20 (Pill Splitter) 1 ea UNSCH PRN OTHER 11/20/16 00:15 Vital Signs / I&O Vital Signs Date Time Temp Pulse Resp B/P Pulse Ox O2 Delivery O2 Flow Rate FiO2 11/21/16 08:00 71 11/21/16 06:55 68 11/21/16 05:16 75 11/21/16 04:08 77 11/21/16 03:20 98.6 77 16 91/60 97 11/21/16 03:13 74 11/21/16 02:19 72 11/21/16 01:15 80 11/21/16 00:11 70 11/20/16 23:29 98.8 71 18 87/64 97 11/20/16 23:26 70 11/20/16 22:05 68 11/20/16 21:13 79 11/20/16 20:38 84 11/20/16 20:38 99.3 95 16 99/62 96 11/20/16 19:02 74 11/20/16 18:25 88 11/20/16 17:01 69 11/20/16 16:22 75 11/20/16 15:10 77 11/20/16 15:10 97.7 76 18 106/56 98 11/20/16 14:10 76 11/20/16 13:21 92 11/20/16 12:04 91 11/20/16 11:27 78 11/20/16 11:27 98.6 86 18 91/56 99 11/20/16 10:24 67 I/O 11/20/16 11/20/16 11/20/16 11/21/16 11/21/16 11/21/16 07:00 15:00 23:00 07:00 15:00 23:00 Intake Total 1652 ml 960 ml 800 ml Balance 1652 ml 960 ml 800 ml Intake Oral 240 ml 960 ml 800 ml IV Total 1412 ml # Voids 4 3 # Bowel Movements 0 Physical Exam GENERAL: Well developed, well nourished. No acute distress. HEENT: Jugular venous pressure is normal. CHEST: Lungs clear to auscultation bilaterally. Unlabored respiratory effort. CARDIAC: Regular rate and rhythm without S3, S4, or murmur. ABDOMEN: Soft, nontender, no hepatosplenomegaly. Bowel sounds present. EXTREMITIES: No clubbing, cyanosis, or edema. Right groin OK TELE: NSR Laboratory Laboratory Tests Test 11/21/16 04:58 White Blood Count 10.7 TH/MM3 Red Blood Count 4.29 MIL/MM3 Hemoglobin 12.6 GM/DL Hematocrit 37.9 % Mean Corpuscular Volume 88.2 FL Mean Corpuscular Hemoglobin 29.4 PG Mean Corpuscular Hemoglobin 33.3 % Concent Red Cell Distribution Width 13.6 % Platelet Count 228 TH/MM3 Mean Platelet Volume 8.7 FL Assessment and Plan Problem List: (1) Tobacco abuse Assessment and Plan: counseled on cessation (2) Acute ST elevation myocardial infarction (STEMI) of inferior wall Assessment and Plan: s/p PCI (3) Stented coronary artery Assessment and Plan: cont ASA 81mg, Brilinta 90mg bid Assessment and Plan OK to DC. OV 2 weeks Chester Rowell MD Nov 21, 2016 10:21
[2016-11-21 12:01] LABS: ANION GAP 6 MEQ/L (5-15); AST (GOT) 102 U/L (15-37); BICARBONATE 24.4 MEQ/L (21.0-32.0); BLOOD UREA NITROGEN 12 MG/DL (7-18); CHLORIDE 110 MEQ/L (98-107); GLOMERULAR FILTRATION RATE 116 ML/MIN (>89); POTASSIUM 3.8 MEQ/L (3.5-5.1); SODIUM (NA) 140 MEQ/L (136-145)
[2016-11-21 12:04] LABS: ALKALINE PHOSPHATASE 110 U/L (45-117); ALT (GPT) 26 U/L (12-78); CREATINE KINASE 641 U/L (39-308); TOTAL BILIRUBIN ADULT 0.4 MG/DL (0.2-1.0)
[2016-11-21 12:21] LABS: CKMB 25.4 NG/ML (0.5-3.6)
--- NOTE | 2016-11-21 14:56 | HHI.DS ---
Discharge Summary Admission Date Nov 19, 2016 at 22:25 Admitting Diagnosis Acute inferior wall MT, tobaccoism (1) Acute ST elevation myocardial infarction (STEMI) of inferior wall ICD Code: I21.19 (2) Leucocytosis ICD Code: D72.829 Procedures Cardiac catheterization performed 11/20. Please see report. Brief History - From Admission This is a 46-year-old male, no comorbidities, presented to the hospital last night with chest pain, 10 over 10, left substernal area, radiating to the left arm, associated with nausea and shortness of breath, which lasted for about an hour. Patient does not have any history of heart problems in the family, current smoker, one half pack a day since 18 years old. Patient was found to have an inferior MT, went to cardiac catheterization, had the circumflex stented. Recently, patient is chest pain-free. CBC/BMP: 11/21/16 0458 11/21/16 1051 Significant Findings Laboratory Tests Test 11/19/16 11/19/16 11/20/16 11/21/16 20:20 22:15 04:06 04:58 White Blood Count 18.3 TH/MM3 12.7 TH/MM3 (4.0-11.0) (4.0-11.0) Neutrophils (%) (Auto) 78.6 % 75.0 % (16.0-70.0) (16.0-70.0) Neutrophils # (Auto) 14.4 TH/MM3 9.5 TH/MM3 (1.8-7.7) (1.8-7.7) Chloride Level 108 MEQ/L 111 MEQ/L (98-107) (98-107) Estimat Glomerular Filtration 70 ML/MIN (>89) Rate Random Glucose 119 MG/DL 139 MG/DL (74-106) (74-106) Bedside Glucose 131 MG/DL (60-95) Red Blood Count 4.33 MIL/MM3 4.29 MIL/MM3 (4.50-5.90) (4.50-5.90) Hemoglobin 12.5 GM/DL 12.6 GM/DL (13.0-17.0) (13.0-17.0) Hematocrit 38.4 % 37.9 % (39.0-51.0) (39.0-51.0) Calcium Level 8.3 MG/DL (8.5-10.1) Aspartate Amino Transf 227 U/L (15-37) (AST/SGOT) Total Creatine Kinase 2290 U/L (39-308) Creatine Kinase MB 249.0 NG/ML (0.5-3.6) Creatine Kinase MB % 10.9 % (0.0-4.0) Albumin 3.0 GM/DL (3.4-5.0) LDL Cholesterol 108 MG/DL (0-99) HDL Cholesterol 29.9 MG/DL (40.0-60.0) Test 11/21/16 10:51 Chloride Level 110 MEQ/L (98-107) Calcium Level 8.2 MG/DL (8.5-10.1) Aspartate Amino Transf 102 U/L (15-37) (AST/SGOT) Total Creatine Kinase 641 U/L (39-308) Creatine Kinase MB 25.4 NG/ML (0.5-3.6) Albumin 3.0 GM/DL (3.4-5.0) Imaging Last Impressions Chest X-Ray 11/19/162152 Signed Impressions: Service Date/Time: Saturday, November 19, 2016 22:21 - CONCLUSION: No acute disease. Renny Mendoza MD PE at Discharge GENERAL: Lying in bed. Appears couple. Alert and oriented 3. SKIN: Warm and dry. HEAD: Normocephalic. EYES: No scleral icterus. No injection or drainage. NECK: Supple, trachea midline. No JVD CARDIOVASCULAR: Regular rate and rhythm without murmurs, gallops, or rubs. RESPIRATORY: Breath sounds equal bilaterally. No accessory muscle use. GASTROINTESTINAL: Abdomen soft, non-tender, nondistended. MUSCULOSKELETAL: No cyanosis, or edema. BACK: Nontender without obvious deformity. No CVA tenderness. Pt update on day of discharge Patient seen this morning around 11:30 AM. Says he feels well. Denies any chest pain or shortness of breath. Feels like going home. Hospital Course Assessment and Plan This is a 46-year-old male with no comorbidities who presented with chest pain. Troponins markedly elevated. Patient underwent percutaneous stenting on . //acute ST elevated myocardial infarction -EKG showed possible inferior MT, troponin was 10. Patient went to cardiac catheterization emergently, status post stenting of the mid circumflex artery. Patient started on aspirin statin, lisinopril, metoprolol and Brilinta. Discussed with patient regarding need for compliance and smoking cessation. Patient agreed. Heart rate still in the 90s , blood pressure control. LDL is 108. -11/21. Status post PCI on 11/20/16. Echocardiogram reviewed with EF 40-45%. Cleared by cardiology. Patient will be discharged on statin, aspirin, metoprolol, Brilinta, lisinopril. //Elevated CK. Initially 2290 on 11/20. Marketed improvement to 641 at time of discharge. Patient will stay hydrated. //Leukocytosis-likely stress- -blood cell count initially elevated 18.3 on admission. Has subsequently resolved. Likely secondary to stress from MT as above. //DVT prophylaxis: On Brilinta, low risk. Pt Condition on Discharge: Good Discharge Disposition: Discharge Home Discharge Time: > 30 minutes Discharge Instructions DIET: Follow Instructions for: Heart Healthy Diet Activities you can perform: Regular-No Restrictions Follow up Referrals: Cardiology - 2 Weeks with Chester Rowell MD PCP Follow-up - 1 Week New Medications: Aspirin (Aspirin Low Strength) 81 Mg Chew 81 MG PO DAILY MT #30 EA Atorvastatin (Atorvastatin) 40 Mg Tab 40 MG PO DAILY MT #30 TAB Lisinopril (Lisinopril) 5 Mg Tab 2.5 MG PO DAILY MT #30 TAB Metoprolol Tartrate (Metoprolol Tartrate) 25 Mg Tab 12.5 MG PO BID MT #60 TAB Ticagrelor (Brilinta) 90 Mg Tab 90 MG PO BID MT #60 TAB Crow López MD Nov 21, 2016 14:56
== END 2016-11-21 15:11 | disposition home or self-care (01) | DRG 247 ==
LOC: NEPE 21:32 → NEDA 22:25 → HCIS 23:50
PROVIDERS: ADMIT Internal Medicine; ATTEND Internal Medicine
PROC: 027034Z Dilation of Coronary Artery, One Artery with Drug-eluting Intraluminal Device, Percutaneous Approach (ICD-10-PCS; principal; 2016-11-19)
PROC: 4A023N7 Measurement of Cardiac Sampling and Pressure, Left Heart, Percutaneous Approach (ICD-10-PCS; 2016-11-19)
PROC: B2111ZZ Fluoroscopy of Multiple Coronary Arteries using Low Osmolar Contrast (ICD-10-PCS; 2016-11-19)
PROC: B2151ZZ Fluoroscopy of Left Heart using Low Osmolar Contrast (ICD-10-PCS; 2016-11-19)
PROC: B41F1ZZ Fluoroscopy of Right Lower Extremity Arteries using Low Osmolar Contrast (ICD-10-PCS; 2016-11-19)
DX: I21.19 ST elevation (STEMI) myocardial infarction involving other coronary artery of inferior wall (principal); I95.9 Hypotension, unspecified; I25.119 Atherosclerotic heart disease of native coronary artery with unspecified angina pectoris; D72.829 Elevated white blood cell count, unspecified; F17.210 Nicotine dependence, cigarettes, uncomplicated; M19.90 Unspecified osteoarthritis, unspecified site
CPT/HCPCS: 71010; 80048; 80053; 80061; 82310; 82435; 82550; 82552; 82565; 82947; 83735; 83880; 84132; 84295; 84484; 84520; 85025; 85027; 85610; 85730; 92941; 93005; 93306; 93458; 99285; C1725; C1760; C1769; C1874; C1887; C1893; G0269; J0583; J1644; J2250; J2370; J7030; Q9967